=== PATIENT | female | born 1950 | race Caucasian/White ===

== ENCOUNTER 2017-01-09 13:11 | Emergency (ER) | payer MEDICARE, MEDICAID ==
--- NOTE | 2017-01-09 14:18 | ER Document Report ---
ED Medical Screen (RME) - General Chief Complaint: Shortness Of Breath Stated Complaint: DIFFICULTY BREATHING Notes: Patient says that she started feeling like she might have a sinus infection yesterday and then it went into her throat and eventually into her chest last evening. She experienced difficulty breathing and felt as if someone was sitting on her chest, like something "heavy". She continued to have a couple of episodes today so she went to a local ear nose and throat doctor for a scheduled appointment and then to an urgent care or she was told to come to the emergency department for further evaluation. She says she's had some cough and it hurts her chest to do so. She's produced no significant phlegm, however. No fevers. Patient hadn't has no history of any lung diseases in particular no history of asthma or COPD and is a nonsmoker. Patient did start a new anti-depression medication 2 days ago. Otherwise, no new or different things in her life. TRAVEL OUTSIDE OF THE [place] IN LAST 30 DAYS: No - Related Data Allergies/Adverse Reactions: No Known Allergies Allergy (Verified 01/09/17 13:49) Past Medical History - Past Medical History Cardiac Medical History: Reports: Hx Hypertension - on meds Denies: Hx Coronary Artery Disease, Hx Heart Attack Pulmonary Medical History: Reports: Hx Pneumonia - hx of Denies: Hx Asthma, Hx Bronchitis, Hx COPD, Hx Tuberculosis Neurological Medical History: Denies: Hx Cerebrovascular Accident, Hx Seizures Endocrine Medical History: Reports: Hx Hypothyroidism Renal/ Medical History: Denies: Hx Peritoneal Dialysis Malignancy Medical History: Reports: Hx Breast Cancer - Right breast lumpectomy and radiation tx GI Medical History: Reports: Hx Gastroesophageal Reflux Disease, Hx Ulcer Musculoskeltal Medical History: Reports Hx Arthritis - generalized Psychiatric Medical History: Reports: Hx Depression Past Surgical History: Reports: Hx Abdominal Surgery - hernia repair, Hx Appendectomy, Hx Breast Surgery - lumpectomy on right, Hx Cardiac Surgery - aorta repair, Hx Section - 2X, Hx Cholecystectomy, Hx Genitourinary Surgery - BLADDER SLING, Hx Vascular Surgery - aortic aneurysm. Denies: Hx Pacemaker - Immunizations Hx Diphtheria, Pertussis, Tetanus Vaccination: Yes - UTD Physical Exam - Vital signs Vitals: Temp Pulse Resp BP Pulse Ox 98.9 F 81 22 H 114/78 92 01/09/17 13:49 01/09/17 13:49 01/09/17 13:49 01/09/17 13:49 01/09/17 13:49 Course - Vital Signs Vital signs: Temp Pulse Resp BP Pulse Ox 98.9 F 81 22 H 114/78 92 01/09/17 13:49 01/09/17 13:49 01/09/17 13:49 01/09/17 13:49 01/09/17 13:49
[2017-01-09 14:43] LABS: ABSOLUTE EOSINOPHILS # (AUTO) 0.1 10^3/uL (0.0-0.6); ABSOLUTE LYMPHOCYTES (AUTO) 1.2 10^3/uL (0.5-4.7); ABSOLUTE MONOCYTES (AUTO) 0.9 10^3/uL (0.1-1.4); ABSOLUTE NEUT (AUTO) 2.5 10^3/uL (1.7-8.2); BASOPHILS % (AUTO) 0.7 % (0-2); EOSINOPHILS % (AUTO) 1.8 % (0-6); HEMATOCRIT 39.6 % (36.0-47.0); HEMOGLOBIN 13.3 g/dL (12.0-15.5); HGB HCT DIFFERENCE 0.3; LYMPHOCYTES % (AUTO) 26.2 % (13-45); MEAN CORPUSCULAR HEMOGLOBIN 31.4 pg (27.0-33.4); MEAN CORPUSCULAR HGB CONC 33.6 g/dL (32.0-36.0); MEAN CORPUSCULAR VOLUME 94 fl (80-97); MONOCYTES % (AUTO) 19.7 % (3-13); RED BLOOD COUNT 4.23 10^6/uL (3.72-5.28); RED CELL DISTRIBUTION WIDTH 13.6 % (11.5-14.0); SEGMENTED NEUTROPHILS % (AUTO) 51.6 % (42-78); WHITE BLOOD COUNT 4.8 10^3/uL (4.0-10.5)
[2017-01-09 14:57] LABS: ALANINE AMINOTRANSFERASE 64 U/L (9-52); ALBUMIN 4.1 g/dL (3.5-5.0); ALKALINE PHOSPHATASE 73 U/L (38-126); ANION GAP 9 (5-19); ASPARTATE AMINO TRANSFERASE 51 U/L (14-36); BILIRUBIN,DIRECT 0.2 mg/dL (0.0-0.4); BILIRUBIN,TOTAL 0.6 mg/dL (0.2-1.3); BLOOD UREA NITROGEN 13 mg/dL (7-20); CALCIUM 9.5 mg/dL (8.4-10.2); CARBON DIOXIDE 31 mmol/L (22-30); CHLORIDE 102 mmol/L (98-107); CREATINE KINASE 38 U/L (30-135); CREATININE RESULT 0.84 mg/dL (0.52-1.25); GLUCOSE 95 mg/dL (75-110); POTASSIUM 4.1 mmol/L (3.6-5.0); SODIUM 142.1 mmol/L (137-145); TOTAL PROTEIN 6.7 g/dL (6.3-8.2)
[2017-01-09 15:09] LABS: CREATINE KINASE MB < 0.22 ng/mL (<4.55); TROPONIN I < 0.012 ng/mL
[2017-01-09] MEDS ORDERED: AMOXICILLIN TR/POT CLAVULANATE 500-125 MG TAB PO ONE (15:14)
--- NOTE | 2017-01-09 15:15 | ER Document Report ---
ED Respiratory Problem - General Chief Complaint: Shortness Of Breath Stated Complaint: DIFFICULTY BREATHING Time seen by provider: 15:15 Mode of Arrival: Ambulatory Information source: Patient TRAVEL OUTSIDE OF THE [place] IN LAST 30 DAYS: No - HPI Patient complains to provider of: Cough, Short of breath Onset: Yesterday Duration: Worse/persistent Quality of pain: Achy Severity: Mild Pain Level: 2 Short of Breath: Mild Chest pain/discomfort: Tightness Cough: Nonproductive Sputum amount: None Associated symptoms: Chest pain/discomfort, Chills, Congestion, Cough, Short of breath Similar symptoms previously: No Recently seen / treated by doctor: Yes Notes: Patient is a 66-year-old female who presents to the emergency room complaining of chest congestion, pressure, cough, cold, chills, and shortness of breath, symptoms started yesterday, she was seen at the urgent care center today and sent to the emergency room for evaluation, patient denies any sick contacts, no recent long distance traveling, states she's having sinus pain and congestion as well - Related Data Allergies/Adverse Reactions: No Known Allergies Allergy (Verified 01/09/17 13:49) Past Medical History - General Information source: Patient - Social History Smoking Status: Never Smoker Family History: Reviewed & Not Pertinent Patient has suicidal ideation: No Patient has homicidal ideation: No - Past Medical History Cardiac Medical History: Reports: Hx Hypertension - on meds Denies: Hx Coronary Artery Disease, Hx Heart Attack Pulmonary Medical History: Reports: Hx Pneumonia - hx of Denies: Hx Asthma, Hx Bronchitis, Hx COPD, Hx Tuberculosis Neurological Medical History: Denies: Hx Cerebrovascular Accident, Hx Seizures Endocrine Medical History: Reports: Hx Hypothyroidism Renal/ Medical History: Denies: Hx Peritoneal Dialysis Malignancy Medical History: Reports: Hx Breast Cancer - Right breast lumpectomy and radiation tx GI Medical History: Reports: Hx Gastroesophageal Reflux Disease, Hx Ulcer Musculoskeltal Medical History: Reports Hx Arthritis - generalized Psychiatric Medical History: Reports: Hx Depression Past Surgical History: Reports: Hx Abdominal Surgery - hernia repair, Hx Appendectomy, Hx Breast Surgery - lumpectomy on right, Hx Cardiac Surgery - aorta repair, Hx Section - 2X, Hx Cholecystectomy, Hx Genitourinary Surgery - BLADDER SLING, Hx Vascular Surgery - aortic aneurysm. Denies: Hx Pacemaker - Immunizations Hx Diphtheria, Pertussis, Tetanus Vaccination: Yes - UTD Hx Pneumococcal Vaccination: 10/01/15 Review of Systems - Review of Systems Constitutional: See HPI EENT: See HPI Cardiovascular: See HPI Respiratory: See HPI Gastrointestinal: No symptoms reported Genitourinary: No symptoms reported Female Genitourinary: No symptoms reported Musculoskeletal: No symptoms reported Skin: No symptoms reported Hematologic/Lymphatic: No symptoms reported Neurological/Psychological: No symptoms reported -: Yes All other systems reviewed and negative Physical Exam - Vital signs Vitals: Temp Pulse Resp BP Pulse Ox 98.9 F 81 22 H 114/78 92 01/09/17 13:49 01/09/17 13:49 01/09/17 13:49 01/09/17 13:49 01/09/17 13:49 Interpretation: Normal - General General appearance: Appears well, Alert - HEENT Head: Normocephalic, Atraumatic Eyes: Normal Conjunctiva: Normal Extraocular movements intact: Yes Eyelashes: Normal Pupils: PERRL Sinus: Frontal, Maxillary Nasal: Normal Mouth/Lips: Normal Mucous membranes: Normal Pharynx: Erythema. No: Exudate, Potential airway comprom. Neck: Normal - Respiratory Respiratory status: No respiratory distress Chest status: Nontender Breath sounds: Nonproductive cough, Wheezing Chest palpation: Normal - Cardiovascular Rhythm: Regular Heart sounds: Normal auscultation Murmur: No - Abdominal Inspection: Normal Distension: No distension Bowel sounds: Normal Tenderness: Nontender Organomegaly: No organomegaly - Back Back: Normal, Nontender - Extremities General upper extremity: Normal inspection, Nontender, Normal color, Normal ROM , Normal temperature General lower extremity: Normal inspection, Nontender, Normal color, Normal ROM , Normal temperature, Normal weight bearing. No: Sreedhar's sign - Neurological Neuro grossly intact: Yes Cognition: Normal Orientation: AAOx4 [place] Coma Scale Eye Opening: Spontaneous [place] Coma Scale Verbal: Oriented [place] Coma Scale Motor: Obeys Commands [place] Coma Scale Total: 15 Speech: Normal Motor strength normal: LUE, RUE, LLE, RLE Sensory: Normal - Psychological Associated symptoms: Normal affect, Normal mood - Skin Skin Temperature: Warm Skin Moisture: Dry Skin Color: Normal Course - Re-evaluation Re-evalutation: 01/09/17 16:45 Patient resting comfortably, reports feeling much better, lungs are clear to auscultation, lab and imaging findings were discussed with patient at bedside, patient was started on Augmentin for signs consistent with sinusitis, advised to follow-up with her primary care provider or return if symptoms worsen, patient acknowledges understanding and agreement with this plan - Vital Signs Vital signs: Temp Pulse Resp BP Pulse Ox 98.5 F 81 16 114/87 H 92 01/09/17 16:55 01/09/17 13:49 01/09/17 16:55 01/09/17 16:55 01/09/17 16:55 - Laboratory Result Diagrams: 01/09/17 14:15 01/09/17 14:15 Laboratory results interpreted by me: 01/09/17 01/09/17 01/09/17 14:15 14:15 14:15 Monocytes % 19.7 H Carbon Dioxide 31 H AST 51 H ALT 64 H TSH 0.20 L - Diagnostic Test Radiology reviewed: Image reviewed, Reports reviewed - EKG Interpretation by Me EKG shows normal: Sinus rhythm Rate: Normal Rhythm: NSR Discharge - Discharge Clinical Impression: Acute sinusitis Qualifiers: Sinusitis location: maxillary Recurrence: non-recurrent Qualified Code(s): J01.00 - Acute maxillary sinusitis, unspecified Reactive airway disease Qualifiers: Asthma severity: mild intermittent Asthma complication type: with acute exacerbation Qualified Code(s): J45.21 - Mild intermittent asthma with (acute) exacerbation Condition: Stable Disposition: HOME, SELF-CARE Instructions: Sinusitis ([facility]), Reactive Airway Disease ([facility]) Additional Instructions: Follow up with your primary care provider in one to 2 days. Return to the emergency room immediately if symptoms worsen or any additional concerns. Prescriptions: Amox Tr/Potassium Clavulanate [Augmentin 875-125 Tablet] 1 tab PO BID #20 tablet Referrals: GURPREET MILTON MD [Primary Care Provider] - Follow up as needed
[2017-01-09] MEDS ORDERED: IPRATROPIUM/ALBUTEROL 0.5-2.5 MG/3 ML AMPUL NEB ONE (15:28)
--- NOTE | 2017-01-09 15:33 | EKG REPORT ---
SEVERITY:- NORMAL ECG - SINUS RHYTHM : Confirmed by: Taryn Buckner MD 09-Jan-2017 15:33:00
[2017-01-09 17:03] VITALS: BP 114/87
[2017-01-09] MEDS ORDERED: ALBUTEROL SULFATE HFA (90 MCG/PUFF) 8 GM MDI (1 MDI/ER DISP) IH SCH (18:00)
== END 2017-01-09 17:04 | disposition home or self-care (01) ==
LOC: ER 13:11
DX: J45.21 Mild intermittent asthma with (acute) exacerbation (principal); J01.00 Acute maxillary sinusitis, unspecified; R06.02 Shortness of breath; R07.89 Other chest pain; R05 Cough; R68.83 Chills (without fever); R09.89 Other specified symptoms and signs involving the circulatory and respiratory systems; J34.89 Other specified disorders of nose and nasal sinuses; R09.81 Nasal congestion; I10 Essential (primary) hypertension; Z87.01 Personal history of pneumonia (recurrent); Z85.3 Personal history of malignant neoplasm of breast; Z92.3 Personal history of irradiation
CPT/HCPCS: 93005; 94640; 99285; 36415; 82553; 82550; 84443; 85025; 80053; 84484; 71020; 93010; A9270 ×2; J3490; J7620

== ENCOUNTER 2017-10-24 09:10 | Inpatient (IN) | payer MEDICARE, MEDICAID ==
[2017-10-24] MEDS ORDERED: NORMAL SALINE 1000 ML 1,000 ML IV ONE (09:27)
[2017-10-24] MEDS ORDERED: MORPHINE SULFATE 10 MG/ML INJ IV ONE (09:27)
[2017-10-24] MEDS ORDERED: ONDANSETRON HCL INJ/PF 4 MG/2 ML SDV IV ONE (09:27)
--- NOTE | 2017-10-24 09:28 | ER Document Report ---
ED Medical Screen (RME) - General Chief Complaint: General Weakness Stated Complaint: SIDE PAIN Time Seen by Provider: 10/24/17 09:23 Mode of Arrival: Wheelchair Information source: Patient, Relative Notes: 67-year-old female who has been on Cipro for recent urinary tract infection presents with complaints of bilateral flank pain dizziness lightheadedness and 3 episodes of fall I have greeted and performed a rapid initial assessment of this patient. A comprehensive ED assessment and evaluation of the patient, analysis of test results and completion of the medical decision making process will be conducted by additional ED providers. PHYSICAL EXAMINATION: GENERAL: Well-appearing, well-nourished and in no acute distress. HEAD: Atraumatic, normocephalic. EYES: Pupils equal round extraocular movements intact, conjunctiva are normal. ENT: Nares patent NECK: Normal range of motion LUNGS: No respiratory distress Musculoskeletal: Normal range of motion patient has bilateral CVA tenderness NEUROLOGICAL: Normal speech, normal gait. PSYCH: Normal mood, normal affect. SKIN: Warm, Dry, normal turgor, no rashes or lesions noted. TRAVEL OUTSIDE OF THE [place] IN LAST 30 DAYS: No COUNTRY TRAVELED TO/FROM: [place] - Related Data Allergies/Adverse Reactions: No Known Allergies Allergy (Verified 10/24/17 09:21) Past Medical History - Social History Chew tobacco use (# tins/day): No Frequency of alcohol use: None Drug Abuse: None - Past Medical History Cardiac Medical History: Reports: Hx Hypertension - on meds Denies: Hx Coronary Artery Disease, Hx Heart Attack Pulmonary Medical History: Reports: Hx Pneumonia - hx of Denies: Hx Asthma, Hx Bronchitis, Hx COPD, Hx Tuberculosis Neurological Medical History: Denies: Hx Cerebrovascular Accident, Hx Seizures Endocrine Medical History: Reports: Hx Hypothyroidism Renal/ Medical History: Denies: Hx Peritoneal Dialysis Malignancy Medical History: Reports: Hx Breast Cancer - Right breast lumpectomy and radiation tx GI Medical History: Reports: Hx Gastroesophageal Reflux Disease, Hx Ulcer Musculoskeltal Medical History: Reports Hx Arthritis - generalized Psychiatric Medical History: Reports: Hx Depression Past Surgical History: Reports: Hx Abdominal Surgery - hernia repair, Hx Appendectomy, Hx Breast Surgery - lumpectomy on right, Hx Cardiac Surgery - aorta repair, Hx Section - 2X, Hx Cholecystectomy, Hx Genitourinary Surgery - BLADDER SLING, Hx Vascular Surgery - aortic aneurysm. Denies: Hx Pacemaker - Immunizations Hx Diphtheria, Pertussis, Tetanus Vaccination: Yes - UTD Physical Exam - Vital signs Vitals: Temp Pulse Resp BP Pulse Ox 99.5 F 84 20 120/77 95 10/24/17 09:17 10/24/17 09:17 10/24/17 09:17 10/24/17 09:17 10/24/17 09:17 Course - Vital Signs Vital signs: Temp Pulse Resp BP Pulse Ox 99.5 F 84 20 120/77 95 10/24/17 09:17 10/24/17 09:17 10/24/17 09:17 10/24/17 09:17 10/24/17 09:17
[2017-10-24 10:09] LABS: ABSOLUTE MONOCYTES (AUTO) 0.8 10^3/uL (0.1-1.4); ABSOLUTE NEUT (AUTO) 4.5 10^3/uL (1.7-8.2); BASOPHILS % (AUTO) 0.4 % (0-2); EOSINOPHILS % (AUTO) 0.6 % (0-6); HEMATOCRIT 36.9 % (36.0-47.0); HEMOGLOBIN 12.2 g/dL (12.0-15.5); LYMPHOCYTES % (AUTO) 26.9 % (13-45); MEAN CORPUSCULAR HGB CONC 33.2 g/dL (32.0-36.0); MEAN CORPUSCULAR VOLUME 93 fl (80-97); MONOCYTES % (AUTO) 10.4 % (3-13); PLATELET COUNT 226 10^3/uL (150-450); RED BLOOD COUNT 3.95 10^6/uL (3.72-5.28); RED CELL DISTRIBUTION WIDTH 13.5 % (11.5-14.0); SEGMENTED NEUTROPHILS % (AUTO) 61.7 % (42-78); TOTAL CELLS COUNTED % (AUTO) 100 %; WHITE BLOOD COUNT 7.4 10^3/uL (4.0-10.5)
[2017-10-24 10:28] LABS: ALANINE AMINOTRANSFERASE 37 U/L (9-52); ALBUMIN 3.7 g/dL (3.5-5.0); ALKALINE PHOSPHATASE 68 U/L (38-126); ANION GAP 9 (5-19); ASPARTATE AMINO TRANSFERASE 47 U/L (14-36); BILIRUBIN,DIRECT 0.2 mg/dL (0.0-0.4); BILIRUBIN,TOTAL 0.4 mg/dL (0.2-1.3); BLOOD UREA NITROGEN 15 mg/dL (7-20); CARBON DIOXIDE 31 mmol/L (22-30); CHLORIDE 102 mmol/L (98-107); GLUCOSE 98 mg/dL (75-110); LIPASE 46.7 U/L (23-300); POTASSIUM 3.9 mmol/L (3.6-5.0); SODIUM 141.9 mmol/L (137-145); TOTAL PROTEIN 6.1 g/dL (6.3-8.2)
--- NOTE | 2017-10-24 11:02 | ER Document Report ---
ED General - General Chief Complaint: General Weakness Stated Complaint: SIDE PAIN Time Seen by Provider: 10/24/17 09:23 Mode of Arrival: Wheelchair Notes: Patient is a 67-year-old female who presents to the emergency department with a chief complaint of bilateral flank pain with associated weakness, confusion. Flank pain has been over the past 10 days. Describes it as a constant pressure/ ache without any alleviating factors or positioning. Her sister at the bedside states that yesterday she was kind of out of it and would lose her balance when trying to get into bed. She states that today she woke up saying that her back was still hurting her and that she felt weak in her legs. H/o back pain with a history of RA not following with a optical engineering manager yashira "they cant do anything for me". ROS s/f urinary urgency this week. Has been on Cipro for 9 days of a 10 day course. Denies h/o kidney stones, CKD. PMH: breast CA s/p resection, RA, HTN, HLD, h/o abdominal aortic aneurysm PSH: previous AAA repair, ventrla wall hernia repairs, rotator cuff repair, appy , jose r SH: denies tobacco, etoh or IVDU. Lives with her sister and brother in law PCP is Dr. Lares, pain management is with Dr. Glass TRAVEL OUTSIDE OF THE [place] IN LAST 30 DAYS: No COUNTRY TRAVELED TO/FROM: [place] - Related Data Allergies/Adverse Reactions: No Known Allergies Allergy (Verified 10/24/17 09:21) Past Medical History - General Information source: Patient, Relative - Social History Smoking Status: Former Smoker Chew tobacco use (# tins/day): No Frequency of alcohol use: None Drug Abuse: None Family History: Reviewed & Not Pertinent Patient has suicidal ideation: No Patient has homicidal ideation: No - Past Medical History Cardiac Medical History: Reports: Hx Hypertension - on meds Denies: Hx Coronary Artery Disease, Hx Heart Attack Pulmonary Medical History: Reports: Hx Pneumonia - hx of Denies: Hx Asthma, Hx Bronchitis, Hx COPD, Hx Tuberculosis Neurological Medical History: Denies: Hx Cerebrovascular Accident, Hx Seizures Endocrine Medical History: Reports: Hx Hypothyroidism Renal/ Medical History: Denies: Hx Peritoneal Dialysis Malignancy Medical History: Reports: Hx Breast Cancer - Right breast lumpectomy and radiation tx GI Medical History: Reports: Hx Gastroesophageal Reflux Disease, Hx Ulcer Musculoskeltal Medical History: Reports Hx Arthritis - generalized Psychiatric Medical History: Reports: Hx Depression Past Surgical History: Reports: Hx Abdominal Surgery - hernia repair, Hx Appendectomy, Hx Breast Surgery - lumpectomy on right, Hx Cardiac Surgery - aorta repair, Hx Section - 2X, Hx Cholecystectomy, Hx Genitourinary Surgery - BLADDER SLING, Hx Vascular Surgery - aortic aneurysm. Denies: Hx Pacemaker - Immunizations Hx Diphtheria, Pertussis, Tetanus Vaccination: Yes - UTD Hx Pneumococcal Vaccination: 07/06/15 Review of Systems - Review of Systems Constitutional: See HPI EENT: No symptoms reported Cardiovascular: No symptoms reported Respiratory: No symptoms reported Gastrointestinal: No symptoms reported Genitourinary: See HPI Female Genitourinary: No symptoms reported Musculoskeletal: See HPI Skin: No symptoms reported Neurological/Psychological: See HPI -: Yes All other systems reviewed and negative Physical Exam - Vital signs Vitals: Temp Pulse Resp BP Pulse Ox 99.5 F 84 20 120/77 95 10/24/17 09:17 10/24/17 09:17 10/24/17 09:17 10/24/17 09:17 10/24/17 09:17 - Notes Notes: PHYSICAL EXAM GENERAL: Alert, interacts well. HEAD: Normocephalic, atraumatic. NECK: Full range of motion. Supple. Trachea midline. LUNGS: Clear to auscultation bilaterally, no wheezes, rales, or rhonchi. No respiratory distress. HEART: Regular rate and rhythm. No murmurs, gallops, or rubs. ABDOMEN: Soft, nondistended, nontender, abdominal wall hernia nontender, soft. No guarding, rebound, or rigidity.. Bowel sounds present in all 4 quadrants. EXTREMITIES: Moves all 4 extremities spontaneously. 1+ pitting edema, radial and dorsalis pedis pulses 2/4 bilaterally. No cyanosis. NEUROLOGICAL: Alert and oriented x4. Normal speech. PSYCH: Normal affect, normal mood. SKIN: Warm, dry, normal turgor. No rashes or lesions noted. Course - Re-evaluation Re-evalutation: 10/24/17 11:00 Patient is a 67-year-old female who is hemodynamically stable, no acute distress and afebrile. Patient was placed on 2 L nasal cannula by nursing. When I discussed this with the nurse she states that when she got into the room she was satting 80-85%. She was not clinically tachypneic or short of breath. CBC is stable without evidence of leukocytosis or anemia. Chemistry stable without evidence of acute renal failure, electrolyte abnormalities or elevation in liver enzymes. Urinalysis shows persistence of UTI. 10/24/17 13:58 Clinically on exam patient with lower extremity edema and hypoxia concerning for possible new onset CHF. Chest x-ray without evidence of vascular congestion. Patient able to ambulate on room air maintaining sats between 87 and 93% without clinical tachypnea, shortness of breath. Patient not meeting inpatient criteria for pyelonephritis but given persistent hypoxia did consult with Dr. Muñoz for admission who recommended evaluation for PE. I did review the CTA of the chest/abdomen with Dr. Erickson without any evidence of PE, groundglass opacities, vascular congestion, effusion hydronephrosis, hydroureter , nephrolithiasis. Patient was ambulated again and desatted down to 87% and when placed back in bed desatted down to about 83% still clinically not short of breath. Patient was placed on 2 L of nasal cannula and returned up to 99%. Hospitalist staff was reconsulted at this time for possible new onset CHF with hypoxia. I did discuss the case with the admitting hospitalist who states she will assess the patient admitted to [facility] for observation. Patient is agreeable with plan and stable at this time. 10/24/17 20:07 - Vital Signs Vital signs: Temp Pulse Resp BP Pulse Ox 99.5 F 84 22 H 111/75 98 10/24/17 09:17 10/24/17 09:17 10/24/17 19:00 10/24/17 18:01 10/24/17 19:00 - Laboratory Result Diagrams: 10/24/17 09:40 10/24/17 09:40 Laboratory results interpreted by me: 10/24/17 10/24/17 10/24/17 09:40 09:40 11:05 Carbonic Acid ABG pCO2 ABG HCO3 ABG Total CO2 VBG pCO2 Carbon Dioxide 31 H AST 47 H NT-Pro-B Natriuret Pep 3070 H Total Protein 6.1 L Urine Protein 30 H Urine Ketones TRACE H Urine Blood MODERATE H Ur Leukocyte Esterase TRACE H 10/24/17 10/24/17 14:09 17:07 Carbonic Acid 1.89 H ABG pCO2 62.7 H ABG HCO3 33.8 H ABG Total CO2 35.7 H VBG pCO2 64.5 H Carbon Dioxide AST NT-Pro-B Natriuret Pep Total Protein Urine Protein Urine Ketones Urine Blood Ur Leukocyte Esterase - Diagnostic Test Radiology reviewed: Image reviewed, Reports reviewed - EKG Interpretation by Me EKG shows normal: Sinus rhythm Rate: Normal Rhythm: NSR When compared to previous EKG there are: No significant change Discharge - Discharge Clinical Impression: Hypoxia Condition: Stable Disposition: ADMITTED OBSERVATION Admitting Provider: Hospitalist Unit Admitted: [facility]U
[2017-10-24 11:33] LABS: APPEARANCE,URINE SLIGHTLY-CLOUDY; BILIRUBIN,URINE NEGATIVE (NEGATIVE); COLOR,URINE YELLOW; GLUCOSE, URINE NEGATIVE (NEGATIVE); KETONES,URINE TRACE mg/dL (NEGATIVE); LEUKOCYTE ESTERASE,URINE TRACE (NEGATIVE); NITRITE,URINE NEGATIVE (NEGATIVE); PROTEIN,URINE 30 mg/dL (NEGATIVE); UROBILINOGEN,URINE NEGATIVE mg/dL (<2.0)
--- NOTE | 2017-10-24 13:04 | RADIOLOGY REPORT (SQ) ---
EXAM DESCRIPTION: CHEST SINGLE VIEW COMPLETED DATE/TIME: 10/24/2017 12:43 pm REASON FOR STUDY: hypoxia COMPARISON: CT chest 11/17/2012 Two-view chest 01/09/2017 EXAM PARAMETERS: NUMBER OF VIEWS: One view. TECHNIQUE: Single frontal radiographic view of the chest acquired. RADIATION DOSE: NA LIMITATIONS: None. FINDINGS: LUNGS AND PLEURA: Minimal left basilar scarring or atelectasis. Lungs otherwise well infl ated and clear. No pleural effusion or pneumothorax. MEDIASTINUM AND HILAR STRUCTURES: No masses. Contour normal. HEART AND VASCULAR STRUCTURES: No cardiomegaly. Tortuous uncoiled thoracic aorta, stable BONES: No acute findings. HARDWARE: None in the chest. OTHER: No other significant finding. IMPRESSION: Minimal left basilar scarring or atelectasis. Otherwise unremarkable study TECHNICAL DOCUMENTATION: JOB ID: [id number] [employer]- All Rights Reserved
[2017-10-24 14:24] LABS: VENOUS BLOOD PCO2 64.5 mmHg (35-63); VENOUS BLOOD PH 7.3 (7.30-7.42)
--- NOTE | 2017-10-24 14:45 | RADIOLOGY REPORT (SQ) ---
EXAM DESCRIPTION: CTA CHEST COMPLETED DATE/TIME: 10/24/2017 2:26 pm REASON FOR STUDY: hypoxia, r/o PE COMPARISON: 11/17/2012 TECHNIQUE: CT scan of the chest performed using helical scanning technique with dynamic intravenous contrast injection. Images reviewed with lung, soft tissue and bone windows. Reconstructed coronal and sagittal MPR images reviewed. Additional 3 dimensional post-processing performed to develop Maximal Intensity Projection images (MO P). All images stored on PACS. All CT scanners at this facility use dose modulation, iterative reconstruction, and/or weight based d osing when appropriate to reduce radiation dose to as low as reasonably achievable (ALARA). [facility]: Dose Right [facility]: CareDose [facility]: Dose Right [facility]: Teradose 4D [facility]: [employer] Software CONTRAST TYPE AND DOSE: contrast/concentration: Isovue 370.00 mg/ml; Total Contrast Delivered: 80.0 ml; Total Saline Delivered: 80.0 ml Contrast bolus optimized for the pulmonary arteries. Not diagnostic for the aorta. RENAL FUNCTION: GFR > 60. RADIATION DOSE: CT Rad equipment meets quality standard of care and radiation dose reduction techniq ues were employed. CTDIvol: 45.4 - 46.9 mGy. DLP: 1846 mGy-cm. . LIMITATIONS: None. FINDINGS: LUNGS AND PLEURA: 10 x 15 mm part solid pleural-based nodule lateral segment of the middle lobe. No effusions. AORTA AND GREAT VESSELS: No aneurysm. Contrast bolus not optimized for the aorta. HEART: No pericardial effusion. PULMONARY ARTERIES: No emboli visualized in the main pulmonary arteries or the segmental branches. HILAR AND MEDIASTINAL STRUCTURES: No identified masses or abnormal nodes. HARDWARE: None in the chest. UPPER ABDOMEN: No significant findings. Limited exam. THYROID AND OTHER SOFT TISSUES: No masses. No adenopathy. BONES: No acute or significant finding. 3D MIPS: Confirm above findings. OTHER: No other significant finding. IMPRESSION: 1. No acute findings. 2. Small pulmonary nodule right lung. COMMENT: Fleischner Criteria for Ground Glass Nodules: >6mm ground glass single nodule: CT 6-12 mo, then CT every 2 yr until 5 yr Quality ID # [id number]: Final reports with documentation of one or more dose reduction techniques (e.g., Au tomated exposure control, adjustment of the mA and/or kV according to patient size, use of iterative reconstruction technique) TECHNICAL DOCUMENTATION: JOB ID: [id number] [employer]- All Rights Reserved
[2017-10-24 17:25] LABS: ARTERIAL BLOOD BASE EXCESS 6.5 mmol/L; ARTERIAL BLOOD H2CO3 1.89 mmol/L (1.05-1.35); ARTERIAL BLOOD HCO3 33.8 mmol/L (20-26); ARTERIAL BLOOD O2 SATURATION 96.6 % (94-98); ARTERIAL BLOOD PCO2 62.7 mmHg (35-45); ARTERIAL BLOOD PH 7.35 (7.35-7.45); ARTERIAL BLOOD PO2 93.5 mmHg (80-100); ARTERIAL BLOOD TOTAL CO2 35.7 mmol/L (21-25)
[2017-10-24 17:29] LABS: ARTERIAL BLOOD FIO2 2L
[2017-10-24] MEDS ORDERED: FUROSEMIDE INJ/PF 100 MG/10 ML SDV IV ONE (17:58)
[2017-10-24] MEDS ORDERED: ASPIRIN 81 MG TABLET, CHEWABLE PO ONE (18:00)
--- NOTE | 2017-10-24 18:12 | PDOC H&P ---
History of Present Illness Admission Date/PCP: 10/24/17 LATRELL BARAHONA MD History of Present Illness: DINA KWONG is a 67 year old female past medical history of Hypothyroidism Hypertension Hyperlipidemia GERD Depression Back pain Osteoarthritis In the year 1999 she had AAA repair. 2 years ago she had some more surgery on her abdominal aortic aneurysm by a vascular surgeon in [place]. Approximately 10 days ago she was started on Paxil but she only took 7 days worth because she was unable to afford the full prescription. She takes hydrocodone every 6 hours as needed for her arthritis. She has had rhinorrhea for the past few days and has had generalized weakness. She had gone to her primary care physician's office 9 days ago with flank pain and had been diagnosed with a urinary tract infection and was given antibiotics for 10 days. Patient presented to the emergency room for bilateral flank pain and generalized weakness. Workup in the emergency room including CT of the chest and abdomen with contrast was unremarkable. She was found to be hypoxic on room air with sats dropping into the low 80s. EKG shows normal sinus rhythm with no ST or T-wave changes. I have ordered cardiac enzymes. Will check serial troponins observe her on telemetry. She does have right lower quadrant tenderness although she has had an appendicectomy in the past. We will get a pelvic ultrasound to rule out ovarian pathology. We will also get an echocardiogram and give her 1 dose of Lasix. He had BNP is elevated. I suspect diastolic congestive heart failure exacerbation. Past Medical History Cardiac Medical History: Reports: Hypertension - on meds Denies: Coronary Artery Disease, Myocardial Infarction Pulmonary Medical History: Reports: Pneumonia - hx of Denies: Asthma, Bronchitis, Chronic Obstructive Pulmonary Disease (COPD), Tuberculosis Neurological Medical History: Denies: Seizures Endocrine Medical History: Reports: Hypothyroidism Malignancy Medical History: Reports: Breast Cancer - Right breast lumpectomy and radiation tx GI Medical History: Reports: Gastroesophageal Reflux Disease Musculoskeltal Medical History: Reports: Arthritis - generalized Psychiatric Medical History: Reports: Depression Hematology: Denies: Anemia Past Surgical History Past Surgical History: Reports: Appendectomy, Section - 2X, Cholecystectomy, Vascular Surgery - abdominal aortic aneurysm Denies: Pacemaker Social History Smoking Status: Former Smoker Frequency of Alcohol Use: None Hx Recreational Drug Use: No Hx Prescription Drug Abuse: No Family History Family History: Reviewed & Not Pertinent, Hypertension Parental Family History Reviewed: Yes Children Family History Reviewed: Yes Sibling(s) Family History Reviewed.: Yes Medication/Allergy Home Medications: Aspirin 81 mg PO DAILY 10/24/17 Lisinopril 20 mg PO DAILY 10/24/17 Allergies/Adverse Reactions: No Known Allergies Allergy (Verified 10/24/17 09:21) Review of Systems Constitutional: PRESENT: as per HPI. ABSENT: fever(s), headache(s), night sweats Eyes: ABSENT: visual disturbances Ears: ABSENT: hearing changes Nose, Mouth, and Throat: PRESENT: other - rhinorrhea. ABSENT: sore throat Cardiovascular: PRESENT: dyspnea on exertion. ABSENT: edema, palpitations Gastrointestinal: PRESENT: abdominal pain, heartburn. ABSENT: diarrhea Genitourinary: PRESENT: difficulty urinating Musculoskeletal: ABSENT: joint swelling Integumentary: ABSENT: rash Neurological: PRESENT: confusion, memory loss Psychiatric: PRESENT: depression Physical Exam Vital Signs: Temp Pulse Resp BP Pulse Ox 99.5 F 84 17 96/80 L 100 10/24/17 09:17 10/24/17 09:17 10/24/17 17:01 10/24/17 17:01 10/24/17 17:01 Intake & Output 10/23/17 10/24/17 10/25/17 06:59 06:59 06:59 Weight 98.2 kg General appearance: PRESENT: no acute distress, obese Eye exam: PRESENT: EOMI, PERRLA. ABSENT: nystagmus, scleral icterus Ear exam: PRESENT: normal external ear exam Mouth exam: PRESENT: moist Throat exam: ABSENT: post pharyngeal erythema, tonsillar exudate Neck exam: ABSENT: JVD, tenderness, thyromegaly, tracheal deviation Respiratory exam: PRESENT: clear to auscultation davey, unlabored Cardiovascular exam: PRESENT: RRR Vascular exam: ABSENT: pallor GI/Abdominal exam: PRESENT: normal bowel sounds, soft, tenderness - Right lower quadrant tenderness Rectal exam: PRESENT: deferred Extremities exam: ABSENT: calf tenderness, pedal edema Musculoskeletal exam: PRESENT: other - Pain with R hip flexion- has arthritis. ABSENT: tenderness Neurological exam: PRESENT: alert, awake, oriented to person, oriented to place , oriented to time, oriented to situation. ABSENT: motor sensory deficit Psychiatric exam: PRESENT: appropriate affect Skin exam: ABSENT: cyanosis, petechiae, rash, skin tears Results Laboratory Results: 10/24/17 09:40 10/24/17 09:40 10/24/17 10/24/17 10/24/17 09:40 09:40 11:05 WBC 7.4 RBC 3.95 Hgb 12.2 Hct 36.9 MCV 93 MCH 31.0 MCHC 33.2 RDW 13.5 Plt Count 226 Seg Neutrophils % 61.7 Lymphocytes % 26.9 Monocytes % 10.4 Eosinophils % 0.6 Basophils % 0.4 Absolute Neutrophils 4.5 Absolute Lymphocytes 2.0 Absolute Monocytes 0.8 Absolute Eosinophils 0.0 Absolute Basophils 0.0 Carbonic Acid HCO3/H2CO3 Ratio ABG pH ABG pCO2 ABG pO2 ABG HCO3 ABG O2 Saturation ABG Base Excess VBG pH VBG pCO2 VBG HCO3 VBG Base Excess FiO2 Sodium 141.9 Potassium 3.9 Chloride 102 Carbon Dioxide 31 H Anion Gap 9 BUN 15 Creatinine 0.85 Est GFR ( Amer) > 60 Est GFR (Non-Af Amer) > 60 Glucose 98 Calcium 9.0 Total Bilirubin 0.4 AST 47 H ALT 37 Alkaline Phosphatase 68 Total Protein 6.1 L Albumin 3.7 Lipase 46.7 Urine Color YELLOW Urine Appearance SLIGHTLY-CLOUDY Urine pH 5.0 Ur Specific [employer] 1.030 Urine Protein 30 H Urine Glucose (UA) NEGATIVE Urine Ketones TRACE H Urine Blood MODERATE H Urine Nitrite NEGATIVE Ur Leukocyte Esterase TRACE H Urine WBC (Auto) 10 Urine RBC (Auto) 25 10/24/17 10/24/17 14:09 17:07 WBC RBC Hgb Hct MCV MCH MCHC RDW Plt Count Seg Neutrophils % Lymphocytes % Monocytes % Eosinophils % Basophils % Absolute Neutrophils Absolute Lymphocytes Absolute Monocytes Absolute Eosinophils Absolute Basophils Carbonic Acid 1.89 H HCO3/H2CO3 Ratio 17:1 ABG pH 7.35 ABG pCO2 62.7 H ABG pO2 93.5 ABG HCO3 33.8 H ABG O2 Saturation 96.6 ABG Base Excess 6.5 VBG pH 7.30 VBG pCO2 64.5 H VBG HCO3 31.0 VBG Base Excess 3.0 FiO2 2L Sodium Potassium Chloride Carbon Dioxide Anion Gap BUN Creatinine Est GFR ( Amer) Est GFR (Non-Af Amer) Glucose Calcium Total Bilirubin AST ALT Alkaline Phosphatase Total Protein Albumin Lipase Urine Color Urine Appearance Urine pH Ur Specific [employer] Urine Protein Urine Glucose (UA) Urine Ketones Urine Blood Urine Nitrite Ur Leukocyte Esterase Urine WBC (Auto) Urine RBC (Auto) 10/24/17 09:40 NT-Pro-B Natriuret Pep 3070 H Impressions: Chest X-Ray 10/24/17 11:52 IMPRESSION: Minimal left basilar scarring or atelectasis. Otherwise unremarkable study Chest/Abdomen CTA 10/24/17 13:58 IMPRESSION: 1. No acute findings. 2. Small pulmonary nodule right lung. Assessment & Plan - Diagnosis (1) Diastolic CHF, acute on chronic Is this a current diagnosis for this admission?: Yes Plan: Check serial cardiac enzymes echocardiogram low-sodium diet monitor intake and output. - Time Time Spent: Greater than 70 Minutes - Plan Summary Plan Summary: Check serial cardiac enzymes and echocardiogram Bladder scan to rule out urinary retention Pelvic ultrasound for right lower quadrant tenderness Continue supplemental oxygen.
[2017-10-24] MEDS ORDERED: FUROSEMIDE INJ/PF 40 MG/4 ML SDV IV ONE (18:30)
[2017-10-24 18:42] LABS: MAGNESIUM 2.2 mg/dL (1.6-2.3); PHOSPHORUS 3.4 mg/dL (2.5-4.5)
[2017-10-24 18:54] LABS: CREATINE KINASE MB 2.69 ng/mL (<4.55)
[2017-10-24 19:00] LABS: TROPONIN I 0.346 ng/mL
[2017-10-24 19:08] LABS: URINE AMPHETAMINES SCREEN NEGATIVE; URINE BARBITURATES SCREEN NEGATIVE; URINE BENZODIAZEPINES SCREEN NEGATIVE; URINE COCAINE SCREEN NEGATIVE; URINE MARIJUANA (THC) SCREEN NEGATIVE; URINE METHADONE SCREEN NEGATIVE; URINE PHENCYCLIDINE SCREEN NEGATIVE
[2017-10-25] MEDS ORDERED: CLONAZEPAM 1 MG TABLET PO ONE (00:15)
[2017-10-25 01:03] LABS: CREATINE KINASE MB 2.43 ng/mL (<4.55)
[2017-10-25 01:26] LABS: TROPONIN I 0.283 ng/mL
[2017-10-25] MEDS: HYDROCODONE/ACETAMINOPHEN 10-325 MG TABLET PO PRN ×3 (01:40→22:25)
[2017-10-25] MEDS: ACETAMINOPHEN 325 MG TABLET PO PRN (03:33)
[2017-10-25] MEDS: LANSOPRAZOLE 30 MG TAB.RAP.DR PO SCH ×2 (05:33→18:27)
--- NOTE | 2017-10-25 07:43 | RADIOLOGY REPORT (SQ) ---
EXAM DESCRIPTION: U/S NON-OB PELVIS W/O DOP CLINICAL HISTORY: 67 years, Female, Right lower quadrant pain COMPARISON: March 07, 2014 TECHNIQUE: Transabdominal LIMITATIONS: None. FINDINGS: 10.1 x 6 x 6 cm leiomyomatous uterus including a 3.5 cm subserosal right uterine fibroid without suspicious interval change, 0.3 cm endometrial stripe thickness, 3.9 cm cervical length, an unremarkable ovarian fossae. Ovaries are not directly visualized. No significant free fluid. IMPRESSION: No acute findings. Endometrial atrophy. Fibroid uterus. Ovaries are not directly visualized. 2011 [employer]- All Rights Reserved
[2017-10-25 08:09] LABS: PROTHROMBIN TIME 13.9 SEC (11.4-15.4)
[2017-10-25 08:10] LABS: PARTIAL THROMBOPLASTIN TIME 35.4 SEC (23.5-35.8)
[2017-10-25 08:21] LABS: CHOLESTEROL 112.34 mg/dL (0-200); MAGNESIUM 2.1 mg/dL (1.6-2.3); PHOSPHORUS 3.9 mg/dL (2.5-4.5); TRIGLYCERIDES 78 mg/dL (<150)
[2017-10-25 08:30] LABS: CREATINE KINASE MB 2.34 ng/mL (<4.55)
[2017-10-25 08:31] LABS: DIRECT LDL 60 mg/dL (<100)
[2017-10-25 08:35] LABS: TROPONIN I 0.224 ng/mL
[2017-10-25] MEDS: FLUOXETINE HCL 20 MG CAPSULE PO SCH (09:00)
[2017-10-25] MEDS: LEVOTHYROXINE SODIUM 0.075 MG TABLET PO SCH (09:00)
[2017-10-25] MEDS: LISINOPRIL 10 MG TABLET PO SCH (09:01)
[2017-10-25] MEDS: GABAPENTIN 300 MG CAPSULE PO SCH ×3 (09:01→18:27)
[2017-10-25] MEDS: ASPIRIN 81 MG TABLET, ENT COATED PO SCH (09:01)
[2017-10-25] MEDS: ATORVASTATIN CALCIUM 40 MG TABLET PO SCH (09:01)
[2017-10-25] MEDS: LEVOTHYROXINE SODIUM 0.05 MG TABLET PO SCH (09:01)
[2017-10-25] MEDS: ENOXAPARIN SODIUM INJ 40 MG/0.4 ML DISP.SYRIN SUBCUT SCH (09:02)
--- NOTE | 2017-10-25 10:18 | EKG REPORT ---
SEVERITY:- BORDERLINE ECG - SINUS RHYTHM BORDERLINE T ABNORMALITIES, ANTERIOR LEADS BORDERLINE PROLONGED QT INTERVAL : Confirmed by: Lesvia Prather 25-Oct-2017 10:18:11
[2017-10-25 16:18] LABS: CREATINE KINASE MB 1.89 ng/mL (<4.55); TROPONIN I 0.17 ng/mL
--- NOTE | 2017-10-25 18:04 | PDOC PROGRESS REPORT ---
Subjective Progress Note for:: 10/25/17 Subjective:: Feels better, no chest pain. US showed leiyomyoma and fibroid on the Right, these were not visualized. She will need a transvaginal ultrasound for better visualization but I think this could be something that could be pursued as an outpatient. Her troponin was mildly positive and she does have risk factors for coronary artery disease so I think she would benefit from a stress test. Echocardiogram is pending Reason For Visit: ACUTE HYPOXIC RESPIRATORY FAILURE Physical Exam Vital Signs: Temp Pulse Resp BP Pulse Ox 98.7 F 64 14 129/79 H 98 10/25/17 15:10 10/25/17 15:10 10/25/17 15:10 10/25/17 15:10 10/25/17 15:10 Intake & Output 10/24/17 10/25/17 10/26/17 06:59 06:59 06:59 Intake Total 10 75 Balance 10 75 Weight 97.5 kg 97.5 kg Additional comments: Lungs: Clear to auscultation bilaterally normal respiratory effort Cardiac: S1-S2 regular no murmurs heard no peripheral edema Abdomen: Soft, no focal tenderness, normal bowel sounds Skin: Warm and dry next Results Laboratory Results: 10/24/17 10/25/17 10/25/17 18:06 07:43 07:43 Phosphorus 3.4 3.9 Magnesium 2.2 2.1 Ammonia < 8.7 L Triglycerides 78 Cholesterol 112.34 LDL Cholesterol Direct 60 VLDL Cholesterol 16.0 HDL Cholesterol 39 L TSH 10/25/17 07:43 Phosphorus Magnesium Ammonia Triglycerides Cholesterol LDL Cholesterol Direct VLDL Cholesterol HDL Cholesterol TSH 1.61 10/24/17 10/25/17 10/25/17 18:06 00:15 07:43 CK-MB (CK-2) 2.69 2.43 2.34 Troponin I 0.346 0.283 0.224 NT-Pro-B Natriuret Pep 1420 H 10/25/17 15:40 CK-MB (CK-2) 1.89 Troponin I 0.170 NT-Pro-B Natriuret Pep Impressions: Chest X-Ray 10/24/17 11:52 IMPRESSION: Minimal left basilar scarring or atelectasis. Otherwise unremarkable study Chest/Abdomen CTA 10/24/17 13:58 IMPRESSION: 1. No acute findings. 2. Small pulmonary nodule right lung. Pelvis Ultrasound 10/25/17 00:00 IMPRESSION: No acute findings. Endometrial atrophy. Fibroid uterus. Ovaries are not directly visualized. 2011 [employer]- All Rights Reserved Assessment & Plan - Diagnosis (1) Diastolic CHF, acute on chronic Is this a current diagnosis for this admission?: Yes - Time Time Spent with patient: 25-34 minutes - Plan Summary Plan Summary: Plan for echocardiogram to evaluate left ventricular ejection fraction. I think she has a component of diastolic CHF and will be continued on diuresis with Lasix. Stress test in the morning.
[2017-10-25] MEDS: FUROSEMIDE INJ/PF 20 MG/2 ML SDV IV SCH (18:27)
[2017-10-25] MEDS: CLONAZEPAM 1 MG TABLET PO SCH (22:24)
[2017-10-25] MEDS: TRAZODONE HCL 50 MG TABLET PO PRN (22:24)
[2017-10-26 05:31] LABS: HEMATOCRIT 33.8 % (36.0-47.0); HEMOGLOBIN 11.4 g/dL (12.0-15.5); MEAN CORPUSCULAR HEMOGLOBIN 31.2 pg (27.0-33.4); MEAN CORPUSCULAR HGB CONC 33.8 g/dL (32.0-36.0); MEAN CORPUSCULAR VOLUME 92 fl (80-97); PLATELET COUNT 193 10^3/uL (150-450); RED BLOOD COUNT 3.66 10^6/uL (3.72-5.28); RED CELL DISTRIBUTION WIDTH 13.3 % (11.5-14.0); WHITE BLOOD COUNT 5.2 10^3/uL (4.0-10.5)
[2017-10-26 05:56] LABS: ALANINE AMINOTRANSFERASE 39 U/L (9-52); ALBUMIN 3.4 g/dL (3.5-5.0); ALKALINE PHOSPHATASE 58 U/L (38-126); ANION GAP 9 (5-19); ASPARTATE AMINO TRANSFERASE 32 U/L (14-36); BILIRUBIN,DIRECT 0.2 mg/dL (0.0-0.4); BILIRUBIN,TOTAL 0.3 mg/dL (0.2-1.3); BLOOD UREA NITROGEN 12 mg/dL (7-20); CALCIUM 8.9 mg/dL (8.4-10.2); CARBON DIOXIDE 33 mmol/L (22-30); CHLORIDE 102 mmol/L (98-107); GLUCOSE 79 mg/dL (75-110); POTASSIUM 3.4 mmol/L (3.6-5.0); SODIUM 143.6 mmol/L (137-145); TOTAL PROTEIN 5.6 g/dL (6.3-8.2)
[2017-10-26 06:04] LABS: MAGNESIUM 2.1 mg/dL (1.6-2.3); PHOSPHORUS 3.9 mg/dL (2.5-4.5)
[2017-10-26 06:10] LABS: CREATINE KINASE MB 1.26 ng/mL (<4.55); TROPONIN I 0.132 ng/mL
[2017-10-26] MEDS: LANSOPRAZOLE 30 MG TAB.RAP.DR PO SCH ×2 (06:10→16:45)
[2017-10-26] MEDS: FUROSEMIDE INJ/PF 20 MG/2 ML SDV IV SCH ×2 (06:14→18:16)
--- NOTE | 2017-10-26 11:34 | PDOC PROGRESS REPORT ---
Subjective Progress Note for:: 10/26/17 Subjective:: 67-year-old female who presented to the hospital with nonspecific abdominal and epigastric pain and generalized weakness and was found to have significant hypoxia. US showed leiyomyoma and fibroid on the Right, these were not visualized. She will need a transvaginal ultrasound for better visualization but I think this could be something that could be pursued as an outpatient. Her troponin was mildly positive and she does have risk factors for coronary artery disease. Echocardiogram is pending. Plan is for a stress test in the morning. Reason For Visit: ACUTE HYPOXIC RESPIRATORY FAILURE Physical Exam Vital Signs: Temp Pulse Resp BP Pulse Ox 97.8 F 64 18 111/60 98 10/26/17 08:26 10/26/17 08:26 10/26/17 08:26 10/26/17 08:26 10/26/17 08:26 Intake & Output 10/25/17 10/26/17 10/27/17 06:59 06:59 06:59 Intake Total 10 767 Output Total 0 Balance 10 767 Weight 97.5 kg 97 kg Additional comments: Obese, middle-aged female sitting in bed not in acute distress HEENT: Pupils equal reactive light moist pink oropharyngeal mucosa with no lesions normal conjunctiva with no discharge no icterus Lungs: Clear to auscultation bilaterally normal respiratory effort Cardiac: S1-S2 regular no murmurs heard no peripheral edema Abdomen: Soft, no focal tenderness, normal bowel sounds Skin: Warm and dry next Results Laboratory Results: 10/26/17 04:23 10/26/17 04:23 10/26/17 10/26/17 10/26/17 04:23 04:23 04:23 WBC 5.2 RBC 3.66 L Hgb 11.4 L Hct 33.8 L MCV 92 MCH 31.2 MCHC 33.8 RDW 13.3 Plt Count 193 Sodium Cancelled 143.6 Potassium Cancelled 3.4 L Chloride Cancelled 102 Carbon Dioxide Cancelled 33 H Anion Gap Cancelled 9 BUN Cancelled 12 Creatinine Cancelled 0.66 Est GFR ( Amer) Cancelled > 60 Est GFR (Non-Af Amer) Cancelled > 60 Glucose Cancelled 79 Calcium Cancelled 8.9 Phosphorus 3.9 Magnesium 2.1 Total Bilirubin 0.3 AST 32 ALT 39 Alkaline Phosphatase 58 Total Protein 5.6 L Albumin 3.4 L 10/24/17 10/25/17 10/25/17 18:06 00:15 07:43 CK-MB (CK-2) 2.69 2.43 2.34 Troponin I 0.346 0.283 0.224 NT-Pro-B Natriuret Pep 1420 H 10/25/17 10/26/17 15:40 04:23 CK-MB (CK-2) 1.89 1.26 Troponin I 0.170 0.132 NT-Pro-B Natriuret Pep 785 Impressions: Chest X-Ray 10/24/17 11:52 IMPRESSION: Minimal left basilar scarring or atelectasis. Otherwise unremarkable study Chest/Abdomen CTA 10/24/17 13:58 IMPRESSION: 1. No acute findings. 2. Small pulmonary nodule right lung. Pelvis Ultrasound 10/25/17 00:00 IMPRESSION: No acute findings. Endometrial atrophy. Fibroid uterus. Ovaries are not directly visualized. 2010 [employer]- All Rights Reserved Assessment & Plan - Diagnosis (1) Diastolic CHF, acute on chronic Is this a current diagnosis for this admission?: Yes
[2017-10-26] MEDS: ENOXAPARIN SODIUM INJ 40 MG/0.4 ML DISP.SYRIN SUBCUT SCH (12:02)
[2017-10-26] MEDS: GABAPENTIN 300 MG CAPSULE PO SCH ×3 (12:06→18:11)
[2017-10-26] MEDS: FLUOXETINE HCL 20 MG CAPSULE PO SCH (12:06)
[2017-10-26] MEDS: ATORVASTATIN CALCIUM 40 MG TABLET PO SCH (12:06)
[2017-10-26] MEDS: LEVOTHYROXINE SODIUM 0.075 MG TABLET PO SCH (12:06)
[2017-10-26] MEDS: LEVOTHYROXINE SODIUM 0.05 MG TABLET PO SCH (12:06)
[2017-10-26] MEDS: ASPIRIN 81 MG TABLET, ENT COATED PO SCH (12:06)
[2017-10-26] MEDS: HYDROCODONE/ACETAMINOPHEN 10-325 MG TABLET PO PRN ×2 (12:08→20:47)
[2017-10-26] MEDS: LISINOPRIL 10 MG TABLET PO SCH (13:16)
[2017-10-26 15:23] LABS: CREATINE KINASE MB 1.23 ng/mL (<4.55); TROPONIN I 0.095 ng/mL
[2017-10-26] MEDS ORDERED: LOPERAMIDE HCL 2 MG CAPSULE PO ONE (19:30)
[2017-10-26] MEDS ORDERED: SODIUM CHLORIDE NASAL SPRAY 44 ML NASL PRN (19:30)
[2017-10-26] MEDS: CLONAZEPAM 1 MG TABLET PO SCH (20:47)
[2017-10-27] MEDS: FUROSEMIDE INJ/PF 20 MG/2 ML SDV IV SCH ×2 (05:04→17:34)
[2017-10-27] MEDS: FLUOXETINE HCL 20 MG CAPSULE PO SCH (08:33)
[2017-10-27] MEDS: LEVOTHYROXINE SODIUM 0.075 MG TABLET PO SCH (08:33)
[2017-10-27] MEDS: LEVOTHYROXINE SODIUM 0.05 MG TABLET PO SCH (08:33)
[2017-10-27] MEDS: LANSOPRAZOLE 30 MG TAB.RAP.DR PO SCH ×2 (08:34→17:34)
[2017-10-27] MEDS: HYDROCODONE/ACETAMINOPHEN 10-325 MG TABLET PO PRN ×2 (08:35→17:45)
[2017-10-27] MEDS: ENOXAPARIN SODIUM INJ 40 MG/0.4 ML DISP.SYRIN SUBCUT SCH (11:29)
[2017-10-27] MEDS: ASPIRIN 81 MG TABLET, ENT COATED PO SCH (11:30)
[2017-10-27] MEDS: GABAPENTIN 300 MG CAPSULE PO SCH ×3 (11:30→17:34)
[2017-10-27] MEDS: ATORVASTATIN CALCIUM 40 MG TABLET PO SCH (11:30)
[2017-10-27] MEDS: LISINOPRIL 10 MG TABLET PO SCH (11:31)
[2017-10-27] MEDS ORDERED: POTASSIUM CHLORIDE 10 MEQ TABLET.SA PO ONE (12:30)
--- NOTE | 2017-10-27 15:46 | PDOC PROGRESS REPORT ---
Subjective Progress Note for:: 10/27/17 Subjective:: 67-year-old female who presented to the hospital with nonspecific abdominal and epigastric pain and generalized weakness and was found to have significant hypoxia. US showed leiyomyoma and fibroid on the Right, these were not visualized. She will need a transvaginal ultrasound for better visualization but I think this could be something that could be pursued as an outpatient. Her troponin was mildly positive and she does have risk factors for coronary artery disease. Echocardiogram is pending. Unfortunately the stress test could not be done today because there was extravasation of her IV. She is feeling better. Dyspnea has improved with diuresis. Reason For Visit: ACUTE HYPOXIC RESPIRATORY FAILURE Physical Exam Vital Signs: Temp Pulse Resp BP Pulse Ox 98.3 F 65 18 126/85 H 100 10/27/17 12:04 10/27/17 12:04 10/27/17 12:04 10/27/17 12:04 10/27/17 12:04 Intake & Output 10/26/17 10/27/17 10/28/17 06:59 06:59 06:59 Intake Total 767 650 522 Output Total 0 Balance 767 650 522 Weight 97 kg 95.1 kg Additional comments: Obese, middle-aged female lying in bed, appears comfortable HEENT: Pupils equal reactive light moist pink oropharyngeal mucosa with no lesions normal conjunctiva with no discharge no icterus Lungs: Clear to auscultation bilaterally normal respiratory effort Cardiac: S1-S2 regular no murmurs heard no peripheral edema Abdomen: Soft, no focal tenderness, normal bowel sounds Results Laboratory Results: 10/26/17 04:23 10/26/17 04:23 10/24/17 10/25/17 10/25/17 18:06 00:15 07:43 CK-MB (CK-2) 2.69 2.43 2.34 Troponin I 0.346 0.283 0.224 NT-Pro-B Natriuret Pep 1420 H 10/25/17 10/26/17 10/26/17 15:40 04:23 14:23 CK-MB (CK-2) 1.89 1.26 1.23 Troponin I 0.170 0.132 0.095 NT-Pro-B Natriuret Pep 785 Impressions: Chest X-Ray 10/24/17 11:52 IMPRESSION: Minimal left basilar scarring or atelectasis. Otherwise unremarkable study Chest/Abdomen CTA 10/24/17 13:58 IMPRESSION: 1. No acute findings. 2. Small pulmonary nodule right lung. Pelvis Ultrasound 10/25/17 00:00 IMPRESSION: No acute findings. Endometrial atrophy. Fibroid uterus. Ovaries are not directly visualized. 2010 [employer]- All Rights Reserved Assessment & Plan - Diagnosis (1) Diastolic CHF, acute on chronic Is this a current diagnosis for this admission?: Yes Plan: Continue Lasix Echocardiogram done, results pending Low-sodium diet monitor intake and output. (2) Hypertension Is this a current diagnosis for this admission?: Yes Plan: On lisinopril (3) Hyperlipidemia Is this a current diagnosis for this admission?: Yes Plan: On atorvastatin (4) Hypothyroidism Is this a current diagnosis for this admission?: Yes Plan: Continue Synthroid (6) GERD (gastroesophageal reflux disease) Is this a current diagnosis for this admission?: Yes Plan: Continue PPI (8) Weakness Is this a current diagnosis for this admission?: Yes Plan: Physical therapy evaluation - Time Time Spent with patient: 25-34 minutes
--- NOTE | 2017-10-27 18:04 | XCELERA REPORT ---
[address] [address] Transthoracic Echocardiogram Report Name: DINA KWONG Age: 67 yrs Gender: Female : 1950 Patient Status: Inpatient Patient Location: [address] [place] [address] Study Date: 10/27/2017 10:56 AM Height: 64 in Weight: 216 lb BSA: 2.0 m2 Procedure: A two-dimensional transthoracic echocardiogram with color flow Doppler was performed. The study was technically difficult with many images being suboptimal in quality. The study was technically limited with all images being suboptimal in quality. Reason For Study: Hypoxia, LV function History: Hypoxia, LV function. Ordering Physician: LOUIE DE LA TORRE Performed By: Ness Webber Interpretation Summary A two-dimensional transthoracic echocardiogram with color flow Doppler was performed. The left ventricle is normal in size. There is normal left ventricular wall thickness. LV EF is 60% Left ventricular systolic function is normal. LV diastolic function not assessed. The left ventricular wall motion is normal. There is no thrombus. The right ventricle is not well visualized secondary to technical limitations The left atrial size is normal. There is no evidence of mitral valve prolapse. There is no mitral valve stenosis. There is a trace amount of mitral regurgitation There is no aortic valvular vegetation. There is no aortic valve stenosis There is no LVOT obstruction. No aortic regurgitation is present. There is no tricuspid stenosis. There is a trace amount of tricuspid regurgitation Unable to calculate RVSP due to insufficient TR jet. The pulmonic valve is not well visualized. The aortic root is not well visualized. There is no pericardial effusion. MMode/2D Measurements & Calculations RVDd: 2.3 cm LVIDd: 6.0 cm FS: 27.6 % Ao root diam: 2.5 cm IVSd: 0.99 cm LVIDs: 4.3 cm EDV(Teich): 180.6 ml LVPWd: 1.0 cm ESV(Teich): 85.3 ml Ao root area: 4.8 cm2 EF(Teich): 52.8 % Doppler Measurements & Calculations MV E max hector: MV dec slope: Ao V2 max: LV V1 max P.5 cm/sec 153.6 cm/sec 5.0 mmHg MV A max hector: 398.8 cm/sec2 Ao max PG: LV V1 max: 100.2 cm/sec MV dec time: 9.4 mmHg 111.9 cm/sec MV E/A: 0.97 0.24 sec PA V2 max: 98.9 cm/sec PA max P.9 mmHg Left Ventricle The left ventricle is normal in size. There is normal left ventricular wall thickness. LV EF is 60%. Left ventricular systolic function is normal. LV diastolic function not assessed. The left ventricular wall motion is normal. There is no thrombus. Right Ventricle The right ventricle is not well visualized secondary to technical limitations. Atria Right atrium not well visualized secondary to technical limitations. The left atrial size is normal. Mitral Valve There is no evidence of mitral valve prolapse. There is no vegetation seen on the mitral valve. There is no mitral valve stenosis. There is a trace amount of mitral regurgitation. Aortic Valve There is no aortic valvular vegetation. There is no aortic valve stenosis. There is no LVOT obstruction. No aortic regurgitation is present. Tricuspid Valve There is no tricuspid stenosis. There is a trace amount of tricuspid regurgitation. Unable to calculate RVSP due to insufficient TR jet. Pulmonic Valve The pulmonic valve is not well visualized. Great Vessels The aortic root is not well visualized. Effusions There is no pericardial effusion. : LOUIE DE LA TORRE > Taryn Buckner
[2017-10-27] MEDS: CLONAZEPAM 1 MG TABLET PO SCH (21:30)
[2017-10-27] MEDS: TRAZODONE HCL 50 MG TABLET PO PRN (21:31)
[2017-10-27] MEDS: ACETAMINOPHEN 325 MG TABLET PO PRN (21:35)
[2017-10-28 05:17] LABS: ALANINE AMINOTRANSFERASE 33 U/L (9-52); ALBUMIN 3.4 g/dL (3.5-5.0); ALKALINE PHOSPHATASE 57 U/L (38-126); ANION GAP 9 (5-19); ASPARTATE AMINO TRANSFERASE 19 U/L (14-36); BILIRUBIN,DIRECT 0.1 mg/dL (0.0-0.4); BILIRUBIN,TOTAL 0.4 mg/dL (0.2-1.3); BLOOD UREA NITROGEN 9 mg/dL (7-20); CALCIUM 9.2 mg/dL (8.4-10.2); CARBON DIOXIDE 33 mmol/L (22-30); CHLORIDE 101 mmol/L (98-107); GLUCOSE 94 mg/dL (75-110); POTASSIUM 3.4 mmol/L (3.6-5.0); SODIUM 142.9 mmol/L (137-145); TOTAL PROTEIN 5.7 g/dL (6.3-8.2)
[2017-10-28] MEDS: LANSOPRAZOLE 30 MG TAB.RAP.DR PO SCH ×2 (05:59→16:40)
[2017-10-28] MEDS: FUROSEMIDE INJ/PF 20 MG/2 ML SDV IV SCH (05:59)
[2017-10-28] MEDS: ENOXAPARIN SODIUM INJ 40 MG/0.4 ML DISP.SYRIN SUBCUT SCH (09:56)
[2017-10-28] MEDS: FLUOXETINE HCL 20 MG CAPSULE PO SCH (09:56)
[2017-10-28] MEDS: ATORVASTATIN CALCIUM 40 MG TABLET PO SCH (09:57)
[2017-10-28] MEDS: LEVOTHYROXINE SODIUM 0.05 MG TABLET PO SCH (09:57)
[2017-10-28] MEDS: HYDROCODONE/ACETAMINOPHEN 10-325 MG TABLET PO PRN (09:57)
[2017-10-28] MEDS: LEVOTHYROXINE SODIUM 0.075 MG TABLET PO SCH (09:57)
[2017-10-28] MEDS: GABAPENTIN 300 MG CAPSULE PO SCH ×2 (09:58→14:35)
[2017-10-28] MEDS: LISINOPRIL 10 MG TABLET PO SCH (09:58)
[2017-10-28] MEDS ORDERED: ASPIRIN 81 MG TABLET, ENT COATED PO SCH (10:00)
[2017-10-28] MEDS ORDERED: AMINOPHYLLINE INJ/PF 250 MG/10 ML SDV IV ONE (12:00)
[2017-10-28] MEDS ORDERED: REGADENOSON INJ 0.4 MG/5 ML DISP.SYRIN IV ONE (12:00)
--- NOTE | 2017-10-28 13:31 | DRAGON STRESS TEST REPORT ---
INTRAVENOUS LEXISCAN CARDIOLITE STRESS TEST USING SINGLE PHOTON EMMISION COMPUTERIZED TOMOGRAPHIC. DATE OF PROCEDURE: October 28, 2017, 2 day protocol with stress test repeated secondary to extravasation. INDICATION : Coronary artery disease CARDIAC RISK FACTORS: Hypertension, dyslipidemia RESTING EKG: Sinus rhythm, no baseline ST-T wave changes noted STRESS EKG: No significant changes noted with LexiScan bolus REASON FOR TERMINATION: Protocol. PROCEDURE REPORT: Baseline heart rate 82 beats per minute with blood pressure of 100/74. Patient had no significant complaints. Heart rate at 2 minutes post bolus 103 with a blood pressure of 107/80. 3 minutes post bolus heart rate 97 with blood pressure of 109/76. No significant EKG changes were noted. Patient had no significant complaints during the procedure or postprocedure. Patient injected with Aminophyllin 75 mg at 3 minutes or later after Lexiscan bolus. CONCLUSIONS: Normal EKG and hemodynamic response to IV LexiScan. NUCLEAR DATA: At rest the patient was given 14.36 millicuries of technetium 99 sestamibi injected intravenously. As per protocol rest gated SPECT images were obtained. On day of stress test, the patient was given intravenous LexiScan at a dose of 0.4 mg in 5 mL intravenously, followed by flush with normal saline. Subsequently the stress dose of 40.8 millicuries of technetium 99 sestamibi was injected intravenously. As per protocol stress gated images were obtained. NUCLEAR INTERPRETATION: Both raw and processed data were used for interpretation. Visual, qualitative, computer-generated quantitative data was used. There was good myocardial uptake of technetium compound. Motion artifact and soft tissue attenuations were noted. Increased visceral uptake was noted. No definitive areas of transient perfusion defect noted except for borderline decreased uptake noted in the distal inferolateral wall most likely artifactual however cannot rule out mild ischemia. SDS score is 2 therefore overall low risk but needs follow-up. No definitive areas of fixed perfusion defect or scars noted. EKG gated imaging showed LV EF at 63 %, rest and stress gated EF similar visually. T. I D. ratio was 0.94. Lung heart ratio noted to be within normal limits 0.30. No significant extracardiac and abnormal radiotracer activities were noted. RV free wall uptake was noted to be WNL. IMPRESSION: Also refer to comments under nuclear interpretation. Also test results needs to be interpreted in the context of pretest probability. 1. No definitive areas of transient perfusion defect noted except for borderline decreased uptake noted in the distal inferolateral wall most likely artifactual however cannot rule out mild ischemia. SDS score is 2 therefore overall low risk but needs follow-up. 2. There is no definitive scintigraphic evidence of myocardial infarction/scar. 3. EKG gated imaging shows left ventricular ejection fraction of approx. 63 %. 4. Clinical correlation requested as occasionally single vessel disease or balanced ischemia could be missed. In approximately 10% of the cases Lexiscan may not cause adequate vasodilatory stress. MTDD
[2017-10-28] MEDS: ACETAMINOPHEN 325 MG TABLET PO PRN (14:36)
[2017-10-28 16:47] VITALS: BP 90/70
--- NOTE | 2017-10-28 16:50 | PDOC DISCHARGE SUMMARY ---
General - Admit/Disc Date/PCP Admission Date/Primary Care Provider: 10/24/17 17:59 LATRELL BARAHONA MD Discharge Date: 10/28/17 - Discharge Diagnosis (1) Diastolic CHF, acute on chronic Is this a current diagnosis for this admission?: Yes Summary: Patient's EF was noted to be 60% patient's diastolic heart function was not documented. Patient's nuclear stress test demonstrated no evidence of ischemia. Patient was placed on Lasix at time of discharge as needed patient was given additional potassium for 5 days. Patient will need to follow with cardiology and PCP (2) Hyperlipidemia Is this a current diagnosis for this admission?: Yes Summary: Patient will continue on statin (3) Hypertension Is this a current diagnosis for this admission?: Yes Summary: Patient will continue on hypertensive medications. (4) Hypothyroidism Is this a current diagnosis for this admission?: Yes Summary: She will continue on Synthroid. (5) Debility Is this a current diagnosis for this admission?: Yes Summary: Patient will be arranged for PT OT at time of discharge. - Additional Information Discharge Diet: Cardiac Discharge Activity: Activity As Tolerated, Balance Activity w/Rest, Weigh Daily Prescriptions: Furosemide [Lasix 20 mg Tablet] 20 mg PO DAILYP PRN #30 tablet PRN Reason: Potassium Chloride 20 meq PO DAILY #3 tab.er.prt Home Medications: Aspirin [Aspirin EC] 81 mg PO DAILY 10/25/17 Atorvastatin Calcium [Lipitor 40 mg Tablet] 40 mg PO QHS 10/25/17 Clonazepam [Klonopin 2 mg Tablet] 2 mg PO QHS 10/25/17 Fluoxetine HCl [Prozac 20 mg Capsule] 40 mg PO QAM 10/25/17 Gabapentin [Neurontin 300 mg Capsule] 300 mg PO Q8 10/25/17 Hydrocodone/Acetaminophen [[place] 10-325 mg Tablet] 1 tab PO Q6HP PRN 10/25/17 Hydroxyzine HCl [Atarax 25 mg Tablet] 12.5 mg PO Q8HP PRN 10/25/17 Levothyroxine Sodium [Synthroid] 125 mcg PO DAILY 10/25/17 Lisinopril [Prinivil 10 mg Tablet] 10 mg PO DAILY 10/25/17 Omeprazole 40 mg PO QAM 10/25/17 Trazodone HCl [Desyrel 50 mg Tablet] 25 mg PO HSP PRN 10/25/17 Vortioxetine Hydrobromide [Trintellix] 5 mg PO DAILY 10/25/17 Aspirin [Ecotrin 81 mg EC Tablet] 81 mg PO DAILY tabec 10/28/17 Furosemide [Lasix 20 mg Tablet] 20 mg PO DAILYP PRN #30 tablet 10/28/17 Potassium Chloride 20 meq PO DAILY #3 tab.er.prt 10/28/17 History of Present Illness Patient complains of: Presents with bilateral flank pain and generalized weakness History of Present Illness: DINA KWONG is a 67 year old female resents to the emergency room with complaint of bilateral flank pain and generalized weakness. Patient has CT of abdomen and pelvis that demonstrated no acute findings. Patient was noted to be hypoxic on room air satting in the 80s. Patient did have a EKG that demonstrated no ST or T-wave changes. The patient's clinical presentation the concern was that patient had acute on chronic diastolic congestive heart failure. Patient was started on diuretics respiratory function improved. At time of discharge patient was requiring no omental oxygen. Patient was seen by cardiology who did a nuclear stress test demonstrated no ischemia. Patient's 2D echo demonstrated EF of 60% however they did not comment on patient's diastolic heart function. Patient was noted prior to admission to fallen at home and therefore patient was arranged with home health for PT OT. Patient was instructed that she will need to follow with cardiology and PCP Hospital Course Hospital Course: DINA KWONG is a 67 year old female resents to the emergency room with complaint of bilateral flank pain and generalized weakness. Patient has CT of abdomen and pelvis that demonstrated no acute findings. Patient was noted to be hypoxic on room air satting in the 80s. Patient did have a EKG that demonstrated no ST or T-wave changes. The patient's clinical presentation the concern was that patient had acute on chronic diastolic congestive heart failure. Patient was started on diuretics respiratory function improved. At time of discharge patient was requiring no omental oxygen. Patient was seen by cardiology who did a nuclear stress test demonstrated no ischemia. Patient's 2D echo demonstrated EF of 60% however they did not comment on patient's diastolic heart function. Patient was noted prior to admission to fallen at home and therefore patient was arranged with home health for PT OT. Patient was instructed that she will need to follow with cardiology and PCP Physical Exam Vital Signs: Temp Pulse Resp BP Pulse Ox 97.8 F 71 20 113/79 98 10/28/17 16:00 10/28/17 16:00 10/28/17 16:00 10/28/17 16:00 10/28/17 16:00 Intake & Output 10/27/17 10/28/17 10/29/17 06:59 06:59 06:59 Intake Total 650 1576 1096 Balance 650 1576 1096 Weight 95.1 kg 95.2 kg General appearance: PRESENT: no acute distress, well-developed, well-nourished Head exam: PRESENT: atraumatic, normocephalic Eye exam: PRESENT: conjunctiva pink, EOMI, PERRLA. ABSENT: scleral icterus Ear exam: PRESENT: normal external ear exam Mouth exam: PRESENT: moist, tongue midline Neck exam: ABSENT: carotid bruit, JVD, lymphadenopathy, thyromegaly Respiratory exam: PRESENT: clear to auscultation davey. ABSENT: rales, rhonchi, wheezes Cardiovascular exam: PRESENT: RRR. ABSENT: diastolic murmur, rubs, systolic murmur Pulses: PRESENT: normal dorsalis pedis pul Vascular exam: PRESENT: normal capillary refill GI/Abdominal exam: PRESENT: normal bowel sounds, soft. ABSENT: distended, guarding, mass, organolmegaly, rebound, tenderness Rectal exam: PRESENT: deferred Extremities exam: PRESENT: full ROM. ABSENT: calf tenderness, clubbing, pedal edema Neurological exam: PRESENT: alert, awake, oriented to person, oriented to place , oriented to time, oriented to situation, CN II-XII grossly intact. ABSENT: motor sensory deficit Psychiatric exam: PRESENT: appropriate affect, normal mood. ABSENT: homicidal ideation, suicidal ideation Skin exam: PRESENT: dry, intact, warm. ABSENT: cyanosis, rash Results Laboratory Results: 10/26/17 04:23 10/28/17 04:08 10/28/17 04:08 Sodium 142.9 Potassium 3.4 L Chloride 101 Carbon Dioxide 33 H Anion Gap 9 BUN 9 Creatinine 0.67 Est GFR ( Amer) > 60 Est GFR (Non-Af Amer) > 60 Glucose 94 Calcium 9.2 Magnesium 2.0 Total Bilirubin 0.4 AST 19 ALT 33 Alkaline Phosphatase 57 Total Protein 5.7 L Albumin 3.4 L 10/24/17 10/25/1718 18:06 00:15 07:43 CK-MB (CK-2) 2.69 2.43 2.34 Troponin I 0.346 0.283 0.224 NT-Pro-B Natriuret Pep 1420 H 10/25/17 10/26/17 10/26/17 15:40 04:23 14:23 CK-MB (CK-2) 1.89 1.26 1.23 Troponin I 0.170 0.132 0.095 NT-Pro-B Natriuret Pep 785 Impressions: Chest X-Ray 10/24/17 11:52 IMPRESSION: Minimal left basilar scarring or atelectasis. Otherwise unremarkable study Chest/Abdomen CTA 10/24/17 13:58 IMPRESSION: 1. No acute findings. 2. Small pulmonary nodule right lung. Pelvis Ultrasound 10/25/17 00:00 IMPRESSION: No acute findings. Endometrial atrophy. Fibroid uterus. Ovaries are not directly visualized. 2010 [employer]- All Rights Reserved Plan Time Spent: Greater than 30 Minutes
[2017-10-28] MEDS ORDERED: POTASSIUM CHLORIDE 10 MEQ TABLET.SA PO ONE (17:00)
== END 2017-10-28 17:16 | disposition home or self-care (01) | DRG 291 ==
LOC: ER 09:10 → OBSVTOIN 17:59 → EH 17:59 → 3N 10-25 00:58
PROVIDERS: ADMIT Internal Medicine; ATTEND Internal Medicine
DX: I11.0 Hypertensive heart disease with heart failure (principal); J96.01 Acute respiratory failure with hypoxia; I50.33 Acute on chronic diastolic (congestive) heart failure; E78.5 Hyperlipidemia, unspecified; E03.9 Hypothyroidism, unspecified; M15.9 Polyosteoarthritis, unspecified; K21.9 Gastro-esophageal reflux disease without esophagitis; F32.9 Major depressive disorder, single episode, unspecified; D25.9 Leiomyoma of uterus, unspecified; Z79.899 Other long term (current) drug therapy; Z91.81 History of falling; Z85.3 Personal history of malignant neoplasm of breast; Z92.3 Personal history of irradiation; Z90.49 Acquired absence of other specified parts of digestive tract; Z87.891 Personal history of nicotine dependence; Z82.49 Family history of ischemic heart disease and other diseases of the circulatory system
CPT/HCPCS: 36415; 71045; 71275; 76856; 78452; 80053; 80061; 80307; 81001; 82140; 82553; 82803; 83036; 83690; 83735; 83880; 84100; 84443; 84484; 85025; 85027; 85610; 85730; 87086; 87088; 87186; 93005; 93010; 93017; 93306; 96361; 96374; 96375; 99285; A9500; G0378; J0280; J1650; J1940; J2270; J2405; J2785; J3490; J7030; Q9969

== ENCOUNTER 2019-09-03 10:14 | Emergency (ER) | payer MEDICAID, MEDICARE ==
--- NOTE | 2019-09-03 10:27 | ER Document Report ---
ED Medical Screen (RME) - General Chief Complaint: Leg Swelling Stated Complaint: LEG SWELLING,URINARY ISSUES Time Seen by Provider: 09/03/19 10:23 Primary Care Provider: PARUL DUKES MD [Primary Care Provider] - Follow up as needed Notes: Patient is a 69-year-old female presents to the emergency department with swelling noted to the left lower extremity. Voices she has noticed the swelling has increased in the last couple of days. Patient also voices she has a history of a prolapsed uterus prolapsed bladder. States she feels as though her urine is "not coming out like it used to be." She is denying any fevers, abdominal pain, chest pain, respiratory distress. GENERAL: Alert, interacts well. No acute distress. ABDOMEN: Soft, non-tender. Non-distended. Bowel sounds present in all 4 quadrants. EXTREMITIES: Moves all 4 extremities spontaneously. normal radial and dorsalis pedis pulses bilaterally. No cyanosis. Edema noted left lower extremity, positive left calf pain. I have greeted and performed a rapid initial assessment of this patient. A comprehensive ED assessment and evaluation of the patient, analysis of test results and completion of the medical decision making process will be conducted by additional ED providers. I have specifically instructed the patient or family members with the patient to immediately return to any nursing staff should anything change in the patient's condition or with their chief complaint. This medical record was dictated with voice recognizing software. There may be grammatical, syntax errors that are unintended. TRAVEL OUTSIDE OF THE [place] IN LAST 30 DAYS: No COUNTRY TRAVELED TO/FROM: [place] - Related Data Allergies/Adverse Reactions: No Known Allergies Allergy (Verified 10/24/17 09:21) Past Medical History - Past Medical History Cardiac Medical History: Reports: Hx Hypertension - on meds Denies: Hx Coronary Artery Disease, Hx Heart Attack Pulmonary Medical History: Reports: Hx Pneumonia - hx of Denies: Hx Asthma, Hx Bronchitis, Hx COPD, Hx Tuberculosis Neurological Medical History: Denies: Hx Cerebrovascular Accident, Hx Seizures Endocrine Medical History: Reports: Hx Hypothyroidism Renal/ Medical History: Denies: Hx Peritoneal Dialysis Malignancy Medical History: Reports: Hx Breast Cancer - Right breast lumpectomy and radiation tx GI Medical History: Reports: Hx Gastroesophageal Reflux Disease, Hx Ulcer Musculoskeltal Medical History: Reports Hx Arthritis - generalized Psychiatric Medical History: Reports: Hx Depression Past Surgical History: Reports: Hx Abdominal Surgery - hernia repair, Hx Appendectomy, Hx Breast Surgery - lumpectomy on right, Hx Cardiac Surgery - aorta repair, Hx Section - 2X, Hx Cholecystectomy, Hx Genitourinary Surgery - BLADDER SLING, Hx Vascular Surgery - aortic aneurysm. Denies: Hx Pacemaker - Immunizations Hx Diphtheria, Pertussis, Tetanus Vaccination: Yes - UTD Physical Exam - Vital signs Vitals: Temp Pulse Resp BP Pulse Ox 97.7 F 81 16 152/94 H 95 09/03/19 10:18 09/03/19 10:18 09/03/19 10:18 09/03/19 10:18 09/03/19 10:18 Course - Vital Signs Vital signs: Temp Pulse Resp BP Pulse Ox 97.7 F 81 16 152/94 H 95 09/03/19 10:18 09/03/19 10:18 09/03/19 10:18 09/03/19 10:18 09/03/19 10:18 Doctor's Discharge - Discharge Referrals: PARUL DUKES MD [Primary Care Provider] - Follow up as needed
[2019-09-03 10:59] LABS: APPEARANCE,URINE CLEAR; BILIRUBIN,URINE NEGATIVE (NEGATIVE); COLOR,URINE STRAW; GLUCOSE, URINE NEGATIVE (NEGATIVE); KETONES,URINE NEGATIVE (NEGATIVE); LEUKOCYTE ESTERASE,URINE MODERATE (NEGATIVE); NITRITE,URINE NEGATIVE (NEGATIVE); PROTEIN,URINE NEGATIVE (NEGATIVE); URINE SPECIFIC GRAVITY 1.003; UROBILINOGEN,URINE NEGATIVE mg/dL (<2.0)
--- NOTE | 2019-09-03 13:11 | ER Document Report ---
ED General - General Chief Complaint: left leg swelling Stated Complaint: LEG SWELLING,URINARY ISSUES Time Seen by Provider: 09/03/19 10:23 Primary Care Provider: PARUL DUKES MD [Primary Care Provider] - Follow up as needed TRAVEL OUTSIDE OF THE [place] IN LAST 30 DAYS: No COUNTRY TRAVELED TO/FROM: [facility] Notes: Patient is a 69-year-old female with history of hypertension who presents complaining of noticing bilateral lower extremity swelling more than her usual with some discomfort to the left calf area over the past couple days. She has not noticed any redness. She does take Lasix 20 mg once daily. She has not had any shortness of breath, chest pain, or dyspnea on exertion. No injury. She is able to ambulate without difficulty. Patient states that she does have uterine and bladder prolapse which at times makes it difficult for her to urinate, but she is urinating rather normally otherwise. She has not followed with an [employer] or urologist for this issue. Denies any prolonged immobilization, distance travel, recent surgery/trauma, personal cancer history, hormone use, smoking, or previous DVT/PE. Denies any headache, fever, head injury, neck pain, URI, sore throat, chest pain, palpitations, syncope, cough, shortness of breath, wheeze, dyspnea, abdominal pain, nausea/vomiting/diarrhea, hematuria, loss of control of bowel or bladder, numbness/tingling, saddle anesthesia, muscle paralysis/weakness, or rash. - Related Data Allergies/Adverse Reactions: No Known Allergies Allergy (Verified 10/24/17 09:21) Past Medical History - Social History Smoking Status: Never Smoker Chew tobacco use (# tins/day): No Frequency of alcohol use: None Drug Abuse: None Family History: Reviewed & Not Pertinent Patient has suicidal ideation: No Patient has homicidal ideation: No - Past Medical History Cardiac Medical History: Reports: Hx Hypertension - on meds Denies: Hx Coronary Artery Disease, Hx Heart Attack Pulmonary Medical History: Reports: Hx Pneumonia - hx of Denies: Hx Asthma, Hx Bronchitis, Hx COPD, Hx Tuberculosis Neurological Medical History: Denies: Hx Cerebrovascular Accident, Hx Seizures Endocrine Medical History: Reports: Hx Hypothyroidism Renal/ Medical History: Denies: Hx Peritoneal Dialysis Malignancy Medical History: Reports: Hx Breast Cancer - Right breast lumpectomy and radiation tx GI Medical History: Reports: Hx Gastroesophageal Reflux Disease, Hx Ulcer Musculoskeletal Medical History: Reports Hx Arthritis - generalized Psychiatric Medical History: Reports: Hx Depression Past Surgical History: Reports: Hx Abdominal Surgery - hernia repair, Hx Appendectomy, Hx Breast Surgery - lumpectomy on right, Hx Cardiac Surgery - aorta repair, Hx Section - 2X, Hx Cholecystectomy, Hx Genitourinary Surgery - BLADDER SLING, Hx Vascular Surgery - aortic aneurysm. Denies: Hx Pacemaker - Immunizations Hx Diphtheria, Pertussis, Tetanus Vaccination: Yes - UTD Hx Pneumococcal Vaccination: 07/06/15 Review of Systems - Review of Systems -: Yes All other systems reviewed and negative Physical Exam - Vital signs Vitals: Temp Pulse Resp BP Pulse Ox 97.7 F 81 16 152/94 H 95 09/03/19 10:18 09/03/19 10:18 09/03/19 10:18 09/03/19 10:18 09/03/19 10:18 - Notes Notes: PHYSICAL EXAMINATION: GENERAL: Well-appearing, well-nourished and in no acute distress. LUNGS: Breath sounds clear to auscultation bilaterally and equal. No wheezes rales or rhonchi. HEART: Regular rate and rhythm without murmurs, rubs, gallops. ABDOMEN: Soft, nontender, nondistended abdomen. No guarding, no rebound. No masses appreciated. Normal bowel sounds present. No CVA tenderness bilaterally. Musculoskeletal: FROM to passive/active. Strength 5+/5. Sreedhar neg. No asymmetry to LE's. Extremities: 1-2+ pitting edema b/l, mild left calf tenderness. Peripheral pulses 1+ b/l. Capillary refill less than 3 seconds. NEUROLOGICAL: Normal speech, normal gait. PSYCH: Normal mood, normal affect. SKIN: Warm, Dry, normal turgor, no rashes or lesions noted. Course - Re-evaluation Re-evalutation: 09/03/19 13:12 Patient is an afebrile, well-hydrated, 69-year-old female who presents to the ED with bilateral swelling of legs (chronic overall) which I suspect to be benign. Vitals are acceptable without any significant tachycardia, tachypnea, or hy poxia. PE is otherwise unremarkable for any neurovascular compromise, obvious tendon/ligament rupture, obvious fracture/dislocation, septic joint. Doppler was unremarkable for any acute pathology. UA unremarkable. Pt has not had any other symptoms of CP, JOHNSON, SOB. Patient is nontoxic-appearing. Patient is able to ambulate and weight-bear. No other labs or imaging warranted at this time based on H&P. I do recommend she see OBGYN/Urology for her dysuria (chronic). I instructed her to take her lasix 20mg twice daily for 3 days then back down to once daily. Conservative measures otherwise for symptoms. Recheck with your PCM in 3-5 days. Return to the ED with any worsening/concerning symptoms otherwise as reviewed in discharge. Patient is in agreement. - Vital Signs Vital signs: Temp Pulse Resp BP Pulse Ox 97.7 F 81 16 152/94 H 95 09/03/19 10:18 09/03/19 10:18 09/03/19 10:18 09/03/19 10:18 09/03/19 10:18 - Laboratory Laboratory results interpreted by me: 09/03/19 10:39 Urine Blood MODERATE H Ur Leukocyte Esterase MODERATE H Discharge - Discharge Clinical Impression: Bilateral lower extremity edema, Dysuria Condition: Stable Disposition: HOME, SELF-CARE Additional Instructions: Rest, Ice, Compression, Elevation Compression stockings Increase lasix to 20mg twice daily for 3 days then back to once daily Tylenol/ibuprofen as needed Light stretches daily Strength exercises as able F/u with your PCP in 3-5 days for a recheck Consider follow-up with [employer]/urology Return to the ED with any worsening symptoms and/or development of fever, headache, chest pain, palpitations, syncope, shortness of breath, trouble breathing, abdominal pain, n/v/d, muscle weakness/paralysis, numbness/tingling, swelling, redness, or other worsening symptoms that are concerning to you. Forms: Elevated Blood Pressure Referrals: PARUL DUKES MD [Primary Care Provider] - Follow up as needed [facility] [Provider Group] - Follow up as needed [facility] [Provider Group] - Follow up as needed
[2019-09-03 13:33] VITALS: BP 133/74
--- NOTE | 2019-09-03 20:15 | XCELERA REPORT ---
[address] [place] [facility] [place] [id number] Lower Extremity Venous Evaluation Procedure: Color flow and duplex imaging of the veins of the left lower extremity as well as the right Common Femoral vein. Right Sided Venous Evaluation The right common femoral vein is fully compressible. Spontaneous and phasic flow is present in the right common femoral vein. Left Sided Venous Evaluation Normal vessel filling wall to wall, compression and augmentation as well as Colour flow down to the infrageniculate veins. Interpretation Summary No duplex evidence of DVT or obstruction in the left lower extremity nor in the right Common Femoral vein. Name: DINA KWONG Age: 69 yrs Gender: Female : 1950 Patient Status: Emergency Patient Location: ER Study Date: 09/03/2019 12:15 PM Reason For Study: left leg swelling/pain Ordering Physician: LISA DICKINSON Performed By: Kaylin Vargas : LISA DICKINSON > Mac Shaikh
== END 2019-09-03 13:34 | disposition home or self-care (01) ==
LOC: ER 10:14
DX: R60.0 Localized edema (principal); R30.0 Dysuria; I10 Essential (primary) hypertension; Z79.899 Other long term (current) drug therapy; Z85.3 Personal history of malignant neoplasm of breast; Z92.3 Personal history of irradiation
CPT/HCPCS: 81001; 87086; 93971; 99284

== ENCOUNTER 2020-04-06 10:06 | Emergency (ER) | payer MEDICARE, MEDICAID ==
[2020-04-06] MEDS ORDERED: ONDANSETRON 4 MG TAB.RAPDIS PO ONE (10:32)
--- NOTE | 2020-04-06 10:33 | ER Document Report ---
ED Medical Screen (RME) - General Chief Complaint: Flank Pain Stated Complaint: FLANK PAIN/STRONG ODOR IN URINE Time Seen by Provider: 04/06/20 10:27 Primary Care Provider: PARUL DUKES MD [Primary Care Provider] - Follow up as needed Notes: HPI: 70-year-old female presenting to the emergency department complaining of bilateral low back pain, increasing discomfort with urination and cloudiness of urine. Patient also reports vaginal irritation and discharge. Patient states she was at [facility] 1.5 weeks ago for a bladder study because she has a prolapsed bladder. States they did insert a catheter multiple times into the bladder. Patient states she does not normally get multiple UTIs. She does complain of some nausea today. She has not had fever at home PHYSICAL EXAMINATION: Mild tenderness across the lower lumbar back bilaterally. Mild tenderness in the left lower quadrant suprapubic region on palpation limited by positioning in triage I have greeted and performed a rapid initial assessment of this patient. A comprehensive ED assessment and evaluation of the patient, analysis of test results and completion of medical decision making process will be conducted by an additional ED providers. TRAVEL OUTSIDE OF THE [place] IN LAST 30 DAYS: No - Related Data Allergies/Adverse Reactions: No Known Allergies Allergy (Verified 04/06/20 10:26) Past Medical History - Past Medical History Cardiac Medical History: Reports: Hx Hypertension - on meds Denies: Hx Coronary Artery Disease, Hx Heart Attack Pulmonary Medical History: Reports: Hx Pneumonia - hx of Denies: Hx Asthma, Hx Bronchitis, Hx COPD, Hx Tuberculosis Neurological Medical History: Denies: Hx Cerebrovascular Accident, Hx Seizures Endocrine Medical History: Reports: Hx Hypothyroidism Renal/ Medical History: Denies: Hx Peritoneal Dialysis Malignancy Medical History: Reports: Hx Breast Cancer - Right breast lumpectomy and radiation tx GI Medical History: Reports: Hx Gastroesophageal Reflux Disease, Hx Ulcer Musculoskeltal Medical History: Reports Hx Arthritis - generalized Psychiatric Medical History: Reports: Hx Depression Past Surgical History: Reports: Hx Abdominal Surgery - hernia repair, Hx Appendectomy, Hx Breast Surgery - lumpectomy on right, Hx Cardiac Surgery - aorta repair, Hx Section - 2X, Hx Cholecystectomy, Hx Genitourinary Surgery - BLADDER SLING, Hx Vascular Surgery - aortic aneurysm. Denies: Hx Pacemaker - Immunizations Hx Diphtheria, Pertussis, Tetanus Vaccination: Yes - UTD Physical Exam - Vital signs Vitals: Temp Pulse Resp BP Pulse Ox 99.0 F 85 20 126/82 H 95 04/06/20 10:09 04/06/20 10:04/06/20 10:04/06/20 10:04/06/20 10:09 Course - Vital Signs Vital signs: Temp Pulse Resp BP Pulse Ox 99.0 F 85 20 126/82 H 95 04/06/20 10:04/06/20 10:04/06/20 10:04/06/20 10:09 04/06/20 10:09 Doctor's Discharge - Discharge Referrals: PARUL DUKES MD [Primary Care Provider] - Follow up as needed
[2020-04-06 11:14] LABS: ABSOLUTE LYMPHOCYTES (AUTO) 1.6 10^3/uL (0.5-4.7); ABSOLUTE MONOCYTES (AUTO) 0.4 10^3/uL (0.1-1.4); ABSOLUTE NEUT (AUTO) 2.3 10^3/uL (1.7-8.2); BASOPHILS % (AUTO) 0.4 % (0-2); HEMATOCRIT 39.5 % (36.0-47.0); HEMOGLOBIN 13.3 g/dL (12.0-15.5); LYMPHOCYTES % (AUTO) 36.8 % (13-45); MEAN CORPUSCULAR HEMOGLOBIN 31.5 pg (27.0-33.4); MEAN CORPUSCULAR HGB CONC 33.6 g/dL (32.0-36.0); MEAN CORPUSCULAR VOLUME 94 fl (80-97); PLATELET COUNT 240 10^3/uL (150-450); RED BLOOD COUNT 4.21 10^6/uL (3.72-5.28); RED CELL DISTRIBUTION WIDTH 13.9 % (11.5-14.0); SEGMENTED NEUTROPHILS % (AUTO) 53.8 % (42-78); TOTAL CELLS COUNTED % (AUTO) 100 %; WHITE BLOOD COUNT 4.3 10^3/uL (4.0-10.5)
--- NOTE | 2020-04-06 11:23 | ER Document Report ---
ED General - General Chief Complaint: Urinary Problem Stated Complaint: FLANK PAIN/STRONG ODOR IN URINE Time Seen by Provider: 04/06/20 10:27 Primary Care Provider: PARUL DUKES MD [ACTIVE STAFF] - Follow up as needed Information source: Patient Notes: Patient is a 70-year-old female presenting to the emergency department chief complaint of TRAVEL OUTSIDE OF THE [place] IN LAST 30 DAYS: No - Related Data Allergies/Adverse Reactions: No Known Allergies Allergy (Verified 04/06/20 10:26) Home Medications: omeprazole. lisinopril. gabapentin. trintellix. levothyoxine. trazodone. atorvastation. lasix. hydrocodone. nortriptaline. famotidine. ezetimibe Past Medical History - Social History Smoking Status: Former Smoker Chew tobacco use (# tins/day): No Frequency of alcohol use: Rare Drug Abuse: None Family History: Reviewed & Not Pertinent Patient has homicidal ideation: No - Past Medical History Cardiac Medical History: Reports: Hx Hypertension - on meds Denies: Hx Coronary Artery Disease, Hx Heart Attack Pulmonary Medical History: Reports: Hx Pneumonia - hx of Denies: Hx Asthma, Hx Bronchitis, Hx COPD, Hx Tuberculosis Neurological Medical History: Denies: Hx Cerebrovascular Accident, Hx Seizures Endocrine Medical History: Reports: Hx Hypothyroidism Renal/ Medical History: Denies: Hx Peritoneal Dialysis Malignancy Medical History: Reports: Hx Breast Cancer - Right breast lumpectomy and radiation tx GI Medical History: Reports: Hx Gastroesophageal Reflux Disease, Hx Ulcer Musculoskeletal Medical History: Reports Hx Arthritis - generalized Psychiatric Medical History: Reports: Hx Depression Past Surgical History: Reports: Hx Abdominal Surgery - hernia repair, Hx Appendectomy, Hx Breast Surgery - lumpectomy on right, Hx Cardiac Surgery - aorta repair, Hx Section - 2X, Hx Cholecystectomy, Hx Genitourinary Surgery - BLADDER SLING, Hx Vascular Surgery - aortic aneurysm. Denies: Hx Pacemaker - Immunizations Hx Diphtheria, Pertussis, Tetanus Vaccination: Yes - UTD Hx Pneumococcal Vaccination: 07/06/15 Review of Systems - Review of Systems Notes: REVIEW OF SYSTEMS: CONSTITUTIONAL : Denies fever, chills, or sweats. Denies recent illness. EENT: Denies eye, ear, throat, or mouth pain or symptoms. Denies nasal or sinus congestion. CARDIOVASCULAR: Denies chest pain. RESPIRATORY: Denies cough, cold, or chest congestion. Denies shortness of breath, difficulty breathing, or wheezing. GASTROINTESTINAL: Denies abdominal pain. Denies nausea, vomiting, or diarrhea. Denies constipation. GENITOURINARY: Denies difficulty urinating, painful urination, burning, frequency, or blood in urine. MUSCULOSKELETAL: Denies neck or back pain or joint pain or swelling. SKIN: Denies rash or skin lesions. HEMATOLOGIC : Denies easy bruising or bleeding. NEUROLOGICAL: Denies altered mental status or loss of consciousness. Denies headache. Denies weakness or paralysis or loss of use of either side. Denies problems with gait or speech. Denies sensory or motor loss. PSYCHIATRIC: Denies suicidal or homicidal ideations 10 Systems are negative unless otherwise specified above Physical Exam - Vital signs Vitals: Temp Pulse Resp BP Pulse Ox 99.0 F 85 20 126/82 H 95 04/06/20 10:04/06/20 10:04/06/20 10:04/06/20 10:04/06/20 10:09 - Notes Notes: PHYSICAL EXAMINATION: GENERAL: Well-appearing, well-nourished and in no acute distress. HEAD: Atraumatic, normocephalic. EYES: Pupils equal round and reactive to light, extraocular movements intact, sclera anicteric, conjunctiva are normal. ENT: nares patent, oropharynx clear without exudates. Moist mucous membranes. NECK: Normal range of motion, supple without lymphadenopathy, no appreciable JVD LUNGS: Lungs clear to auscultation bilaterally and equal. No wheezes rales or rhonchi. HEART: Regular rate and rhythm without murmurs ABDOMEN: Soft, nontender, normal bowel sounds. No guarding, no rebound. No masses appreciated. EXTREMITIES: Active full range of motion, no pitting or edema. No cyanosis. 2+ pulses x4 NEUROLOGICAL: No focal neurological deficits. Moves all extremities spontaneously and on command. SKIN: Warm, Dry, and intact. Normal turgor, no rashes or lesions noted. Course - Re-evaluation Re-evalutation: 04/06/20 11:57 Patient has been resting comfortably in hospital bed. Patient has been found to have urinary tract infection and will be given prescription for Macrobid. Patient will be discharged home in stable condition. - Vital Signs Vital signs: Temp Pulse Resp BP Pulse Ox 99.0 F 85 20 126/82 H 95 04/06/20 10:27 04/06/20 10:09 04/06/20 10:09 04/06/20 10:09 04/06/20 10:09 - Laboratory Result Diagrams: 04/06/20 10:50 04/06/20 10:50 Laboratory results interpreted by me: 04/06/20 04/06/20 10:50 10:50 Carbon Dioxide 33 H Anion Gap 4 L Urine Blood SMALL H Urine Urobilinogen 2.0 H Ur Leukocyte Esterase MODERATE H Discharge - Discharge Clinical Impression: UTI (urinary tract infection) Qualifiers: Urinary tract infection type: site unspecified Hematuria presence: without hematuria Qualified Code(s): N39.0 - Urinary tract infection, site not specified Condition: Stable Disposition: HOME, SELF-CARE Instructions: Nitrofurantoin ([facility]), Urinary Tract Infection ([facility]) Prescriptions: Nitrofurantoin Monohyd/M-Cryst [Macrobid 100 mg Capsule] 100 mg PO BID #20 cap Referrals: PARUL DUKES MD [ACTIVE STAFF] - Follow up as needed
[2020-04-06 11:32] LABS: APPEARANCE,URINE CLOUDY; BILIRUBIN,URINE NEGATIVE (NEGATIVE); COLOR,URINE YELLOW; GLUCOSE, URINE NEGATIVE (NEGATIVE); KETONES,URINE NEGATIVE (NEGATIVE); LEUKOCYTE ESTERASE,URINE MODERATE (NEGATIVE); NITRITE,URINE NEGATIVE (NEGATIVE); PROTEIN,URINE NEGATIVE (NEGATIVE); URINE SPECIFIC GRAVITY 1.013
[2020-04-06 11:33] LABS: ALBUMIN 4.3 g/dL (3.5-5.0); ALKALINE PHOSPHATASE 73 U/L (38-126); ASPARTATE AMINO TRANSFERASE 25 U/L (14-36); BILIRUBIN,TOTAL 0.3 mg/dL (0.2-1.3); BLOOD UREA NITROGEN 13 mg/dL (7-20); CALCIUM 8.9 mg/dL (8.4-10.2); CHLORIDE 103 mmol/L (98-107); GLUCOSE 90 mg/dL (75-110); POTASSIUM 4.2 mmol/L (3.6-5.0); TOTAL PROTEIN 7.1 g/dL (6.3-8.2)
[2020-04-06 11:38] LABS: CARBON DIOXIDE 33 mmol/L (22-30)
[2020-04-06 11:42] LABS: ANION GAP 4 (5-19)
[2020-04-06 12:12] VITALS: BP 119/76
== END 2020-04-06 12:12 | disposition home or self-care (01) ==
LOC: ER 10:06
DX: N39.0 Urinary tract infection, site not specified (principal); I10 Essential (primary) hypertension; E03.9 Hypothyroidism, unspecified; F32.9 Major depressive disorder, single episode, unspecified; K21.9 Gastro-esophageal reflux disease without esophagitis; Z79.899 Other long term (current) drug therapy; Z79.891 Long term (current) use of opiate analgesic; Z85.3 Personal history of malignant neoplasm of breast; Z92.3 Personal history of irradiation
CPT/HCPCS: 99283; 36415; 87040; 87086; 85025; 87088; 80053; 81001; A9270; S0119